=== PATIENT | female | born 2000 | race Caucasian/White ===

== ENCOUNTER 2020-05-11 12:48 | Emergency (ER) | payer OTHER, MEDICAID, SELFPAY ==
--- NOTE | ~2020-05-11 | XR_ITS ---
EXAMINATION: XR KNEE, LEFT CLINICAL INFORMATION: Pain and swelling COMPARISON: None TECHNIQUE: Four views of the left knee. FINDINGS: There is no evidence of acute fracture or dislocation of the left knee. Left knee joint spaces are maintained. No left knee effusion. Within the distal metaphysis of the left femur there is a rim calcified 1.8 x 1.4 cm lesion with what appears to be a mixed density matrix without periosteal reaction. The lesion is not expansile. This has a benign appearance. No central nidus is appreciated. At this age differential diagnostic would include fibrous dysplasia, is an umbilical granuloma, nonossifying fibroma, enchondroma, low-grade chondrosarcoma, giant cell tumor. XR/XR knee LT 4V IMPRESSION: Distal left femoral metaphyseal lesion as described. If clinically indicated MRI would be of help in further evaluation.
--- NOTE | ~2020-05-11 | US_ITS ---
EXAMINATION: US VENOUS ULTRASOUND WITH DOPPLER LOWER EXTREMITY, LEFT CLINICAL INFORMATION: Left lower extremity swelling. Assess for occult DVT COMPARISON: Radiographs left knee 05/11/2020 TECHNIQUE: Ultrasound of the deep veins is performed from the hip to the calf with compression sonography and color and pulse Doppler assessment. Spectral analysis with color-flow imaging is performed. FINDINGS: There is normal venous compression and respiratory variation and augmented flow. The visualized common femoral vein, superficial femoral vein, profunda femoral vein, popliteal vein, and the trifurcation region shows no evidence of deep venous thrombosis. No popliteal fossa cyst demonstrated. US/US venous duplex LE LT IMPRESSION: No DVT demonstrated in the left lower extremity.
[2020-05-11 12:51] VITALS: BP 110/66; PULSE 93; RESP 16; TEMP 36.9; O2SAT 98; BMI 21.2
[2020-05-11 15:59] VITALS: BP 118/67; PULSE 88; RESP 18; TEMP 36.8; O2SAT 98
--- NOTE | 2020-05-11 16:23 | ED.LOWEXIN ---
HPI - Extremity Injury (Lower) General Chief Complaint: Extremity Injury, Lower Stated Complaint: swollen leg Time Seen by Provider: 05/11/20 14:09 Source: patient Mode of arrival: ambulatory History of Present Illness HPI Narrative: 19-year-old female with a past medical history of scoliosis presenting to the ED complaining of left knee pain radiating down left leg x1 week with associated left leg swelling. Denies known injury/trauma or falls. Denies recent travel, history of blood clots, numbness, tingling, weakness, SOB/CP Related Data Allergies Allergy/AdvReac Type Severity Reaction Status Date / Time No Known Allergies Allergy Unverified 05/11/20 14:09 Review of Systems Review of Systems: Constitutional: No Fever, No Chills Musculoskeletal: + joint pain, No Myalgias, + Joint Swelling Skin: No Skin Lesions, No rash Neuro: No Weakness, No Numbness, No Paresthesias Yes all other systems are reviewed and are negative [facility] Past Medical History Attestation statement: The following information was validated with the patient. Medical History (Updated 05/11/20 @ 16:27 by ORESTES Smith) Scoliosis Social History Social History Advance Directives: No Advance Directives Information Provided: No Physical Exam Vital Signs: Vital Signs: Last Vital Signs Temp 98.3 F 05/11/20 15:59 Pulse 88 05/11/20 15:59 Resp 18 05/11/20 15:59 BP 118/67 05/11/20 15:59 Pulse Ox 98 05/11/20 15:59 Body Mass Index 21.2 Const: General: cooperative and healthy appearing Orientation/consciousness: patient oriented x3 Limitations: no limitations HENMT: Head: Yes normal to inspection Ears: hearing grossly normal bilaterally General nose exam: Normal external nose present Face and sinus: Yes normal facial exam Eyes: General: appearance normal, both eyes and all related structures EOM: EOMs intact bilaterally Neck: Neck: Yes normal visual inspection Resp: Effort & Inspection: normal respiratory effort Cardio: Peripheral pulses: dorsalis pedis present Skin: Rashes: no rashes Wounds: no wounds Neuro: General: patient oriented x3, tone normal and moves all extremities Extrem: Other: Left knee with mild tenderness to palpation. Slight swelling appreciated to left lower extremity, no cellulitis/streaking appreciable infection/deformity + left calf tenderness. Neurovascularly intact distally. FROM intact LLE Course Course Course Narrative: XR knee LT 4V IMPRESSION: Distal left femoral metaphyseal lesion as described. If clinically indicated MRI would be of help in further evaluation US venous duplex LE LT IMPRESSION: No DVT demonstrated in the left lower extremity. >> results discussed with patient and father. Worrisome signs and symptoms and strict return precautions discussed. Should follow up with PCP for further workup of metaphyseal lesion MDM - Extremity Injury (Lower) MDM Narrative Medical decision making narrative: 19-year-old female with a past medical history of scoliosis presenting to the ED complaining of left knee pain radiating down left leg x1 week with associated left leg swelling. On exam VSS, NAD/well-appearing, physical exam as above. Concern for sprain/strain vs MSK pain vs DVT Plan: X-ray, venous duplex ultrasound Discharge Plan Discharge Clinical Impression: Swelling of lower extremity, Bone lesion Patient Disposition: Home, Self-Care Instructions: Leg Edema (ED) Additional Instructions: Your x-ray showed a bony lesion at your distal femur, this appears benign, however should be further looked at outpatient with her primary care doctor or orthopedist within MRI The ultrasound was negative for any blood clot Ice, elevate your leg Take Tylenol /Motrin for pain Follow-up with the records officer If pain persists or worsens, becomes unbearable, he developed weakness, fever or chills return to the ED Referrals: Melita Bruce MD [Primary Care Provider] - 2 days
== END 2020-05-11 16:40 | disposition home or self-care (01) ==
PROVIDERS: Emergency Provider Emergency Medicine Emergency Medical Services; PCP Pediatrics
DX: R60.0 Localized edema (principal); M79.662 Pain in left lower leg; M89.9 Disorder of bone, unspecified
CPT/HCPCS: 73564; 93971; 99283

== ENCOUNTER 2020-09-17 09:00 | Outpatient (RCR) | payer OTHER, SELFPAY | END 2020-09-24 14:27 | disposition home or self-care (01) | LOC: HO.PT 09:00 | PROVIDERS: PCP Pediatrics; Visit Provider Pediatrics | DX: M25.562 Pain in left knee (principal) | CPT/HCPCS: 97110; 97162 ==

== ENCOUNTER 2021-10-09 08:11 | Outpatient (REF) | payer OTHER, SELFPAY ==
--- NOTE | ~2021-10-09 | XR_ITS ---
EXAMINATION: BILATERAL ANKLE X-RAY CLINICAL INFORMATION: Effusion COMPARISON: None TECHNIQUE: 3 views of each ankle FINDINGS: Bone alignment is normal. No fracture or dislocation is seen. The ankle mortise is normal. There is no ankle joint effusion. Soft tissues are normal. XR/XR ankle RT 2V IMPRESSION: Unremarkable exam.
--- NOTE | ~2021-10-09 | XR_ITS ---
EXAMINATION: XR KNEE, LEFT CLINICAL INFORMATION: Pain COMPARISON: Previous x-ray April 2020 TECHNIQUE: Three views of the left knee. FINDINGS: Bone alignment is normal. No fracture or dislocation is seen. There is a lucency with sclerotic margin in the distal medial metaphysis of the femur. This measures approximately 1 x 2 cm. This does not appear appreciably changed from 2020 exam. The joint spaces are normal. Lateral view not obtained and joint effusion cannot be assessed. XR/XR knee LT 3V IMPRESSION: Stable appearance to the lucency without sclerotic border in the distal medial metaphysis of the left femur from April 2020 exam.
--- NOTE | ~2021-10-09 | XR_ITS ---
EXAMINATION: BILATERAL ANKLE X-RAY CLINICAL INFORMATION: Effusion COMPARISON: None TECHNIQUE: 3 views of each ankle FINDINGS: Bone alignment is normal. No fracture or dislocation is seen. The ankle mortise is normal. There is no ankle joint effusion. Soft tissues are normal. XR/XR ankle LT 2V IMPRESSION: Unremarkable exam.
[2021-10-09 08:27] LABS: MANUAL DIFF FLAG NO
[2021-10-09 08:44] LABS: Basophils Percent Auto 0.5 % (0-2); Eosinophils Absolute Auto 0.1 X10*3/uL (0.0-0.4); Eosinophils Percent Auto 1.7 % (0-4); Hematocrit 41.1 % (37.0-47.0); Hemoglobin 13.3 g/dl (12.0-16.0); Imm Gran Abs Auto 0.05 X10*3/uL (0.00-0.03); Imm Gran Pct Auto 0.8 % (0.0-0.4); Lymphocytes Absolute Auto 1.4 X10*3/uL (1.2-4.9); Mean Corpuscular HGB Conc 32.4 g/dl (31.0-35.0); Mean Corpuscular Volume 92.8 fL (80.0-98.0); Mean Platelet Volume 11.6 fL (9.4-12.3); Monocytes Absolute Auto 0.5 X10*3/uL (0.1-1.2); Monocytes Percent Auto 7.3 % (2-11); Neutrophils Absolute Auto 4.4 x10*3/uL (2.0-8.3); Neutrophils Percent Auto 67.7 % (45-73); Platelet Count 163 X10*3/uL (160-400); Red Blood Count 4.43 X10*6/uL (4.20-5.50); Red Cell Distribution Width 11.9 % (11.0-16.0); White Blood Count 6.5 X10*3/uL (4.8-10.8)
[2021-10-09 09:13] LABS: Alanine Aminotransferase 14 U/L (0-31); Albumin Level 4.2 g/dL (3.5-5.0); Alkaline Phosphatase 55 U/L (39-117); Anion Gap 12 (12-20); Aspartate Amino Transferase 16 U/L (5-31); Bilirubin Total 0.4 mg/dL (0.0-1.0); Blood Urea Nitrogen 12 mg/dL (9-16); Calcium 9.4 mg/dL (8.4-10.2); Carbon Dioxide 27 mmol/L (22-29); Chloride 107 mmol/L (96-108); Estimated Glomerular Filt Rate > 60; Glucose Fasting 81 mg/dL (60-99); Potassium 4.1 mmol/L (3.3-5.1); Sodium 142 mmol/L (135-145); Total Protein 7.1 g/dL (6.5-8.0)
[2021-10-09 09:34] LABS: Thyroid Stimulating Hormone 1.56 uIU/mL (0.32-4.0)
== END 2021-10-09 08:12 | disposition home or self-care (01) ==
LOC: HO.LAB 08:11
PROVIDERS: PCP Internal Medicine; Visit Provider Internal Medicine
DX: R63.0 Anorexia (principal); D64.9 Anemia, unspecified; R23.3 Spontaneous ecchymoses; M25.562 Pain in left knee; M25.473 Effusion, unspecified ankle
CPT/HCPCS: 36415; 73562; 73600; 80053; 84443; 85025

== ENCOUNTER 2021-12-13 11:01 | Emergency (ER) | payer OTHER, SELFPAY ==
[2021-12-13 11:45] VITALS: BP 130/79; PULSE 68; RESP 14; TEMP 36.8; O2SAT 100; BMI 19.5
--- OUTSIDE RECORDS SUMMARY | 2021-12-13 11:53 | XMS_ITS | Continuity of Care Document ---
:2000 Author Organization [facility] Address [address] [place] [address]- Care Team Providers Name Role Phone Melita Bruce MD Primary Care Physician Encounter [facility] Date(s): 06/18/20 - 07/18/20 [facility] [address] [place] [address]- Attending Physician: [place] Admitting Physician: [place] Referring Physician: AdmtrAngeles Allergies, Adverse Reactions, Alerts Substance Reaction Severity Status NKA Active Medications Advil By Mouth, Every 6 hours, Refills 0, Maintenance, 06/18/20 14:59:00 EDT, Partial fill upon patient request if the prescription is for a schedule II opioid drug. Start Date: 06/18/20 Status: Ordered Social History Social History Type Response Smoking Status Never (less than 100 in life time) entered on: 06/18/20 Sex
--- OUTSIDE RECORDS SUMMARY | 2021-12-13 11:53 | XMS_ITS | Continuity of Care Document ---
:2000 Author Organization [facility] Address [address] [place] [id number]- Care Team Providers Name Role Phone Melita Bruce MD Primary Care Physician Encounter [facility] Date(s): 03/14/20 - 04/20/[address] [address] Attending Physician: Magdalena Krishnan MD Admitting Physician: Magdalena Krishnan MD Referring Physician: Magdalena Krishnan MD
--- OUTSIDE RECORDS SUMMARY | 2021-12-13 11:53 | XMS_ITS | Continuity of Care Document ---
:2000 Author Organization [facility] Address [address] [place] [id number]- Care Team Providers Name Role Phone Melita Bruce MD Primary Care Physician [place] [facility]): [place]/06/20 - 07/09/[address] [id number] Attending Physician: Melita Bruce MD Admitting Physician: Melita Bruce MD Referring Physician: Melita Bruce MD Allergies, Adverse Reactions, Alerts Substance Reaction Severity [...]
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
== END 2021-12-13 12:28 | disposition home or self-care (01) ==
PROVIDERS: Emergency Provider Emergency Medicine; PCP Internal Medicine
DX: M54.50 Low back pain, unspecified (principal); M54.2 Cervicalgia; R51.9 Headache, unspecified
CPT/HCPCS: 99283

== ENCOUNTER 2022-01-16 14:11 | Outpatient (REF) | payer OTHER, SELFPAY ==
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
== END 2022-01-16 14:12 | disposition home or self-care (01) ==
LOC: HO.XRAY 14:11
PROVIDERS: PCP Internal Medicine; Visit Provider Chiropractor
DX: M25.531 Pain in right wrist (principal)
CPT/HCPCS: 73110; 73130

== ENCOUNTER 2022-03-10 16:37 | Outpatient (REF) | payer OTHER, SELFPAY ==
[2022-03-10 17:22] LABS: Influenza A PCR NEGATIVE (Negative); Influenza B PCR NEGATIVE (Negative); Resp Syncy Virus RNA Qual PCR NEGATIVE (Negative); SARS COV2 PCR INHOUSE NEGATIVE (Negative)
== END 2022-03-10 16:38 | disposition home or self-care (01) ==
LOC: HO.LNP 16:37
PROVIDERS: Visit Provider Physician Assistant
DX: Z20.822 Contact with and (suspected) exposure to COVID-19 (principal); B34.9 Viral infection, unspecified
CPT/HCPCS: 0241U

== ENCOUNTER 2022-03-11 13:56 | Outpatient (REF) | payer OTHER, SELFPAY ==
[2022-03-11 16:27] LABS: MANUAL DIFF FLAG NO
[2022-03-11 16:31] LABS: Basophils Percent Auto 0.3 % (0-2); Eosinophils Absolute Auto 0.1 X10*3/uL (0.0-0.4); Eosinophils Percent Auto 1.3 % (0-4); Hematocrit 42.9 % (37.0-47.0); Hemoglobin 14.1 g/dl (12.0-16.0); Imm Gran Abs Auto 0.13 X10*3/uL (0.00-0.03); Imm Gran Pct Auto 1.4 % (0.0-0.4); Lymphocytes Absolute Auto 1.3 X10*3/uL (1.2-4.9); Lymphocytes Percent Auto 14.6 % (20-40); Mean Corpuscular HGB Conc 32.9 g/dl (31.0-35.0); Mean Corpuscular Hemoglobin 30.3 pg (27.0-33.0); Mean Corpuscular Volume 92.3 fL (80.0-98.0); Mean Platelet Volume 12.2 fL (9.4-12.3); Monocytes Absolute Auto 0.7 X10*3/uL (0.1-1.2); Monocytes Percent Auto 7.4 % (2-11); Neutrophils Absolute Auto 6.8 x10*3/uL (2.0-8.3); Platelet Count 214 X10*3/uL (160-400); Red Blood Count 4.65 X10*6/uL (4.20-5.50); White Blood Count 9.1 X10*3/uL (4.8-10.8)
[2022-03-11 16:55] LABS: Iron 97 mcg/dL (30-160); Percent Iron Saturation 28 % (15-50); Total Iron Binding Capacity 343 mcg/dL (228-428); Unsaturated Iron Binding 246 ug/dL
== END 2022-03-11 13:57 | disposition home or self-care (01) ==
LOC: HO.HMGCLDS 13:56
PROVIDERS: PCP Internal Medicine; Visit Provider Physician Assistant
DX: R23.3 Spontaneous ecchymoses (principal)
CPT/HCPCS: 36415; 83540; 85025

== ENCOUNTER 2022-03-21 07:27 | Emergency (ER) | payer OTHER, SELFPAY ==
[2022-03-21 07:31] VITALS: BP 123/73; PULSE 95; RESP 17; TEMP 36.6; O2SAT 98; BMI 21.2
--- NOTE | 2022-03-21 09:02 | ED.GENADULT ---
HPI - General Adult General Chief complaint: General Medical Stated complaint: Nose bleed/Vomiting Time Seen by Provider: 03/21/22 08:57 Source: patient Limitations: no limitations History of Present Illness HPI narrative: 21-year-old female with longstanding history recurrent nose bleeds. Patient has been followed by ENT in the past. Patient had atraumatic nosebleed this morning. Out of the right knee a. Patient has planned follow-up with ENT. Patient states she did swell some blood in no has an upset stomach. Patient denies taking any prescribed medications at this time. No known fever chills shortness of breath. No other complaints at this time Related Data Previous Rx's Medication Instructions Recorded cyclobenzaprine 10 mg tablet 10 mg PO Q8H PRN muscle spasm #10 12/13/21 tabs ibuprofen 600 mg tablet 600 mg PO Q8H PRN pain #20 tabs 12/13/21 oxymetazoline 0.05 % nasal spray 2 spray intranasal Q12H PRN nasal 03/21/22 (Afrin Sinus (oxymetazoline)) congestion 3 days #15 mL sodium chloride 0.65 % nasal spray 2 spray intranasal QID #50 mL 03/21/22 aerosol ([place] Saline) Allergies Allergy/AdvReac Type Severity Reaction Status Date / Time No Known Allergies Allergy Verified 03/10/22 14:06 Review of Systems Review of Systems: Constitutional : no fever chills ENT/Mouth : positive bloody nose right near Cardiovascular : No Chest Pain, No SOB Respiratory : No Cough, No Sputum Gastrointestinal : No Nausea, No Vomiting, No Diarrhea Musculoskeletal : No joint pain, No Myalgias, No Joint SwellingSkin : No Skin Lesions, No rash Neuro : no headache PMFSH Past Medical History Medical History Scoliosis Surgical History History of back surgery Family History Family History Mother No problems noted. Father Diabetes Social History Social History Housing: House Alcohol intake: current Alcohol intake frequency: does not drink Alcohol type: hard liquor Patient Tobacco Use Status: Never used Tobacco Smoked in Last 30 Days: No e-Cigarette/Vaping Use: Never Used Second Hand Smoke Exposure: No Use of substances other than those prescribed or required for medical reasons: No Advance Directives: No Advance Directives Information Provided: Yes service: No Current occupational status: employed Current occupational exposures/hazards: No Cognitive needs: No Hearing needs: No Vision needs: Yes Physical Exam ED Vital Signs: Vital Signs - 24 hr 03/21/22 07:31 03/21/22 10:53 03/21/22 11:09 Temperature 98 F 97.9 F Pulse Rate 95 98 80 Respiratory Rate 17 16 Blood Pressure 123/73 94/66 109/64 Pulse Oximetry 98 98 Oxygen Delivery Method Room Air Room Air 03/21/22 11:38 03/21/22 11:39 Temperature Pulse Rate 77 96 Respiratory Rate Blood Pressure 114/71 120/79 Pulse Oximetry Oxygen Delivery Method BMI result Body Mass Index 21.2 vital signs have been reviewed as normal and appeared to be correct. Blood pressure normal. Heart rate normal. Respiration rate normal. Temperature normal. Oxygen saturation normal. Appearance: Alert. Oriented X3. No acute distress. Head: Normal external exam. Normocephalic. Atraumatic. Eyes: PERRLA. EOMI. ENT: oropharynx is clear. Dry blood noted in the right near. Neck: Soft full range of motion, no JVD CVS: Heart regular rate and rhythm no murmurs and rubs Abdomen: Soft nontender no rebound or guarding positive bowel sounds Back: Full range of motion noted. Skin: Skin warm and dry. Normal skin color. Extremities: No lower extremity edema. Extremities exhibit normal range of motion. Extremities nontender. Neuro: Oriented X 3. No motor deficit. No sensory deficit. Reflexes normal. Course Course Course Narrative: Epistaxis Epistaxis resolved Nausea Anemia Medications Administered Discontinued Medications Generic Name Dose Route Start Last Admin Trade Name Freq PRN Reason Stop Dose Admin Cocaine HCl 2 ml 03/21/22 09:00 03/21/22 09:07 Cocaine Hcl 4 % 4 Ml Solution TOPICAL 03/21/22 09:01 2 ml ONCE ONE Administration Protocol Ondansetron HCl 4 mg 03/21/22 09:00 03/21/22 09:06 Ondansetron Odt 4 Mg Tab.Rapdis TRANSLINGU 03/21/22 09:01 4 mg ONCE ONE Administration Tranexamic Acid 500 mg 03/21/22 10:33 03/21/22 10:38 Tranexamic Acid 1,000 Mg/10 Ml Vial INTRANASAL 03/21/22 10:34 500 mg ONCE ONE Administration Medical Decision Making Medical Decision Making [facility] Narrative: 21-year-old female with recurrent nosebleeds in the past. Most likely secondary to the dry air at this time. Patient has follow-up planned with ENT. Will place cocaine nasal packing at this time and observe patient patient was also given 4 mg Zofran ODT to help with nausea. Patient's vital signs are otherwise stable likely plan discharge home 10:34 patient continues to have some slow bleeding will attempt a TXA packing at this time. Patient would not like a full rhino rocket if she can avoid it at this time. Patient is tearful and states her grandmother of esophageal clot and is concerned that is an issue for her at this time patient was reassured that this is a superficial bleeding her nose. 11:10am case discussed at length with father was very concerned that she has he has continues nosebleeds multiple times a week. Will check CBC BMP and orthostatic vital signs at this time. will also refer patient to ENT follow-up 11:51 patient is nonorthostatic hemoglobin and hematocrit are stable 14.5/44.8 labs reviewed with patient at length patient has no active bleeding in the nasal passageway. Patient encouraged not to blow her nose and at humidity to the air at home. Patient will be given follow-up with ENT and to return if symptoms worsen. At this time we were able to avoid a rhino rocket which was at patient's request. Lab Data 03/21/22 11:33 03/21/22 11:33 Labs: Lab Results 03/21/22 03/21/22 Range/Units 11:33 11:33 WBC 11.6 H (4.8-10.8) X10*3/uL RBC 4.90 (4.20-5.50) X10*6/uL Hgb 14.5 (12.0-16.0) g/dl Hct 44.8 (37.0-47.0) % MCV 91.4 (80.0-98.0) fL MCH 29.6 (27.0-33.0) pg MCHC 32.4 (31.0-35.0) g/dl RDW 12.0 (11.0-16.0) % Plt Count 254 (160-400) X10*3/uL MPV 10.3 (9.4-12.3) fL Immature Gran % (Auto) 0.4 (0.0-0.4) % Neut % (Auto) 87.5 H (45-73) % Lymph % (Auto) 6.6 L (20-40) % [place]aston % (Auto) 4.5 (2-11) % Eos % (Auto) 0.8 (0-4) % Baso % (Auto) 0.2 (0-2) % Lymph # (Auto) 0.8 L (1.2-4.9) X10*3/uL [place]aston # (Auto) 0.5 (0.1-1.2) X10*3/uL Eos # (Auto) 0.1 (0.0-0.4) X10*3/uL Baso # (Auto) 0.0 (0.0-0.2) X10*3/uL Abs Immat Gran (auto) 0.05 H (0.00-0.03) X10*3/uL Absolute Neuts (auto) 10.1 H (2.0-8.3) x10*3/uL Absolute Nucleated RBC 0.000 (0.0-0.012) X10*3/uL Nucleated RBC % (auto) 0.0 (0.0-0.2) /100WBC Sodium 141 (135-145) mmol/L Potassium 4.5 (3.3-5.1) mmol/L Chloride 108 (96-108) mmol/L Carbon Dioxide 23 (22-29) mmol/L Anion Gap 15 (12-20) BUN 16 (9-16) mg/dL Creatinine 0.65 (0.5-1.4) mg/dL Estim Creat Clear Calc 111.4 Estimated GFR > 60 Random Glucose 87 (60-115) mg/dL Calcium 9.3 (8.4-10.2) mg/dL Discharge Plan Discharge Clinical Impression: Epistaxis Patient Disposition: Home, Self-Care Instructions: Nosebleed (ED) Additional Instructions: Your blood work is within normal limits your hemoglobin and hematocrit is stable (14.5/44.8) Vital signs are stable Humidify the air in your room will help decrease chances for recurrent nose bleeds. For for further evaluation close follow-up with ENT as needed referral has been placed in your chart. You will need to reach out to them Prescriptions: [place] Saline 0.65 % aerosol,spray 2 spray intranasal QID Qty: 50 0RF oxymetazoline [Afrin Sinus (oxymetazoline)] 0.05 % spray,non-aerosol 2 spray intranasal Q12H PRN (Reason: nasal congestion) 3 Days Qty: 15 0RF No Action ibuprofen 600 mg tablet 600 mg PO Q8H PRN (Reason: pain) Qty: 20 0RF cyclobenzaprine 10 mg tablet 10 mg PO Q8H PRN (Reason: muscle spasm) Qty: 10 0RF Referrals: Mateo Akbar [Physician] - ( Recurrent nose bleeds multiple times a month) Stand Alone Forms: Work/School Release
[2022-03-21] MEDS: Ondansetron ODT 4 MG TAB.RAPDIS TRANSLINGU (09:06)
[2022-03-21] MEDS: Cocaine HCl 4 % 4 ML SOLUTION 2 ML TOPICAL (09:07)
[2022-03-21] MEDS: Tranexamic Acid 1,000 MG/10 ML VIAL 500 MG INTRANASAL (10:38)
[2022-03-21 10:53] VITALS: BP 94/66; PULSE 98; RESP 16; TEMP 36.6; O2SAT 98
[2022-03-21 11:09] VITALS: BP 109/64; PULSE 80
[2022-03-21 11:37] LABS: MANUAL DIFF FLAG NO
[2022-03-21 11:38] VITALS: BP 114/71; PULSE 77
[2022-03-21 11:39] VITALS: BP 120/79; PULSE 96
[2022-03-21 11:39] LABS: Basophils Percent Auto 0.2 % (0-2); Eosinophils Absolute Auto 0.1 X10*3/uL (0.0-0.4); Eosinophils Percent Auto 0.8 % (0-4); Hematocrit 44.8 % (37.0-47.0); Hemoglobin 14.5 g/dl (12.0-16.0); Imm Gran Abs Auto 0.05 X10*3/uL (0.00-0.03); Imm Gran Pct Auto 0.4 % (0.0-0.4); Lymphocytes Absolute Auto 0.8 X10*3/uL (1.2-4.9); Lymphocytes Percent Auto 6.6 % (20-40); Mean Corpuscular HGB Conc 32.4 g/dl (31.0-35.0); Mean Corpuscular Hemoglobin 29.6 pg (27.0-33.0); Mean Corpuscular Volume 91.4 fL (80.0-98.0); Mean Platelet Volume 10.3 fL (9.4-12.3); Monocytes Absolute Auto 0.5 X10*3/uL (0.1-1.2); Monocytes Percent Auto 4.5 % (2-11); Neutrophils Absolute Auto 10.1 x10*3/uL (2.0-8.3); Neutrophils Percent Auto 87.5 % (45-73); Platelet Count 254 X10*3/uL (160-400); White Blood Count 11.6 X10*3/uL (4.8-10.8)
--- NOTE | 2022-03-21 11:42 | PC.NURSE ---
pt a&ox3, vss, labs drawn, orthostatic vitals complete - pt tolerated well, denies any dizziness at this time.
[2022-03-21 11:55] LABS: Anion Gap 15 (12-20); Blood Urea Nitrogen 16 mg/dL (9-16); Calcium 9.3 mg/dL (8.4-10.2); Carbon Dioxide 23 mmol/L (22-29); Chloride 108 mmol/L (96-108); Creatinine Clr Calc Pharmacy 111.4; Estimated Glomerular Filt Rate > 60; Glucose Random 87 mg/dL (60-115); Potassium 4.5 mmol/L (3.3-5.1); Sodium 141 mmol/L (135-145)
--- NOTE | 2022-03-21 12:23 | PC.NURSE ---
pt a&ox3, bleeding resolved at this time, advised to follow up w ENT per d/c instructions.
== END 2022-03-21 12:27 | disposition home or self-care (01) ==
PROVIDERS: Physician Assistant; Emergency Provider Emergency Medicine; PCP Internal Medicine
DX: R04.0 Epistaxis (principal); Z79.899 Other long term (current) drug therapy
CPT/HCPCS: 36415; 80048; 85025; 99283; C9143

== ENCOUNTER 2022-04-18 09:01 | Outpatient (REF) | payer OTHER, SELFPAY ==
[2022-04-21 16:29] LABS: TS Negative Control Passed; TS Panel A 0; TS Panel B 0; TS Positive Control Passed; TSpotTB Negative (Negative)
[2022-04-21 17:28] LABS: Rubella IgG Antibody 6.61 Index
== END 2022-04-18 09:02 | disposition home or self-care (01) ==
LOC: HO.LAB 09:01
PROVIDERS: PCP Internal Medicine; Visit Provider Internal Medicine
DX: Z01.84 Encounter for antibody response examination (principal); Z11.1 Encounter for screening for respiratory tuberculosis
CPT/HCPCS: 36415; 86481; 86735; 86762; 86765

== ENCOUNTER 2022-08-14 21:47 | Emergency (ER) | payer OTHER, SELFPAY ==
--- NOTE | ~2022-08-14 | XR_ITS ---
EXAMINATION: XR ANKLE, LEFT XR FOOT, LEFT CLINICAL INDICATION: Pain COMPARISON: 10/09/2021 TECHNIQUE: 3 views of the left ankle. 3 views of the left foot. FINDINGS: Articular alignment throughout the ankle and foot appears anatomic. No acute fracture is seen. No significant focal soft tissue abnormality identified. XR/XR ankle LT min 3V IMPRESSION: No acute findings identified in the left ankle or foot.
--- NOTE | ~2022-08-14 | XR_ITS ---
EXAMINATION: XR ANKLE, LEFT XR FOOT, LEFT CLINICAL INDICATION: Pain COMPARISON: 10/09/2021 TECHNIQUE: 3 views of the left ankle. 3 views of the left foot. FINDINGS: Articular alignment throughout the ankle and foot appears anatomic. No acute fracture is seen. No significant focal soft tissue abnormality identified. XR/XR foot LT min 3V IMPRESSION: No acute findings identified in the left ankle or foot.
[2022-08-14 22:21] VITALS: BP 116/63; PULSE 84; RESP 16; TEMP 36; O2SAT 100; BMI 23.0
[2022-08-14 23:25] VITALS: BP 111/64; PULSE 88; RESP 12; TEMP 36.9; O2SAT 97
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
--- NOTE | 2022-08-15 01:08 | PC.NURSE ---
Crutch education provided. Return demonstration performed by pt. Discharge instructions reviewed with pt. Pt verbalizes understanding.
== END 2022-08-15 01:10 | disposition home or self-care (01) ==
PROVIDERS: Emergency Provider Student in an Organized Health Care Education/Training Program; PCP Internal Medicine
DX: S93.602A Unspecified sprain of left foot, initial encounter (principal); M25.572 Pain in left ankle and joints of left foot; Y29.XXXA Contact with blunt object, undetermined intent, initial encounter; Y93.9 Activity, unspecified; Y92.239 Unspecified place in hospital as the place of occurrence of the external cause; Y99.9 Unspecified external cause status
CPT/HCPCS: 73610; 73630; 99283; 99284

== ENCOUNTER 2022-10-06 17:26 | Outpatient (AMB) | payer OTHER, SELFPAY ==
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
[2022-10-06 17:32] VITALS: BP 110/62; BMI 23.0
== END 2022-10-06 17:48 | disposition home or self-care (01) ==
PROVIDERS: PCP Internal Medicine; Visit Provider Internal Medicine
DX: S90.32XA Contusion of left foot, initial encounter (principal)
CPT/HCPCS: 99213

== ENCOUNTER 2022-11-04 18:53 | Outpatient (REF) | payer OTHER, SELFPAY ==
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
== END 2022-11-04 18:54 | disposition home or self-care (01) ==
LOC: HO.MRI 18:53
PROVIDERS: PCP Internal Medicine; Visit Provider Internal Medicine
DX: S90.32XA Contusion of left foot, initial encounter (principal)
CPT/HCPCS: 73718

== ENCOUNTER 2022-12-29 05:04 | Emergency (ER) | payer OTHER, SELFPAY ==
--- NOTE | ~2022-12-29 | CT_ITS ---
EXAMINATION: CT ABDOMEN AND PELVIS WITHOUT CONTRAST CLINICAL INFORMATION: Right lower quadrant pain. COMPARISON: None available. TECHNIQUE: Multidetector volumetric imaging was performed from the superior aspect of the liver through the pubic symphysis. Sagittal and coronal reformatted images were obtained on the technologist's workstation. This CT examination was performed using dose optimization techniques as appropriate, variously including the following: *Automated exposure control *Adjustment of mA and/or kV according to patient size (this includes techniques or standardized protocols for targeted exams where dose is matched to indication/reason for exam; i.e. extremities or head) *Use of iterative reconstruction technique DLP: 417 mGy-cm FINDINGS: LUNG BASES: The visualized lung bases are unremarkable. LIVER, GALLBLADDER, AND BILIARY TREE: The noncontrast liver is normal in size and contour. No biliary ductal dilatation is present. The gallbladder is unremarkable with no evidence of radiopaque gallstones, gallbladder wall thickening, or obvious pericholecystic inflammatory changes. PANCREAS: Unremarkable. SPLEEN: Unremarkable. ADRENAL GLANDS: Unremarkable. KIDNEYS AND URETERS: No renal or ureteral calculus. Moderate right hydroureteronephrosis. Mild right perinephric stranding. BLADDER: Decompressed. No bladder calculus visualized. GASTROINTESTINAL TRACT: The small and large bowel are unremarkable. The appendix is unremarkable. ABDOMINAL WALL: No significant hernia is appreciated. LYMPH NODES: No bulky lymphadenopathy. VASCULAR: Normal caliber abdominal aorta PELVIC VISCERA: Unremarkable. OSSEOUS STRUCTURES: Periprosthetic lucency surrounding the left L3 screw. CT/CT abdomen pelvis wo IV con IMPRESSION: Moderate right hydroureteronephrosis with mild right perinephric stranding. A recently passed calculus cannot be excluded. Periprosthetic lucency surrounding the left L3 screw. This could hardware represent loosening.
[2022-12-29 05:14] VITALS: BP 130/79; PULSE 74; RESP 16; TEMP 36.8; O2SAT 98; BMI 22.7
--- NOTE | 2022-12-29 05:22 | ED.ABDPAIN ---
HPI - Abdominal Pain General Chief Complaint: Abdominal Pain Stated Complaint: Flank pain Time Seen by Provider: 12/29/22 05:20 Source: patient and family Mode of arrival: ambulatory Limitations: no limitations History of Present Illness HPI narrative: 22-year-old female came in for evaluation of right lower quadrant abdominal pain for 3 days, pain has been constant localized to the right lower quadrant area radiates to word the right flank, started her menstruation yesterday cannot tell if urine has blood or not, never had this symptoms in the past. Pain is associated with nausea and vomiting and decreased appetite. Patient was seen by her OBGYN preformed pelvic ultrasound on the patient was told that everything is okay. No dysuria, frequency urination, normal bowel movement last was yesterday, no vaginal discharge or bleed patient declined chance of today. New line never had history of intra-abdominal surgery. Related Data Previous Rx's Medication Instructions Recorded ibuprofen 600 mg tablet 600 mg PO Q8H PRN pain #20 tabs 12/13/21 ibuprofen 600 mg tablet 600 mg PO Q6H PRN pain #30 tabs 12/29/22 ondansetron 4 mg disintegrating 4 mg PO Q8H PRN nausea and 12/29/22 tablet vomiting #20 tabs Allergies Allergy/AdvReac Type Severity Reaction Status Date / Time No Known Allergies Allergy Verified 10/06/22 17:40 Review of Systems Review of Systems All other systems are reviewed and are negative Constitutional: Reports as per HPI and Reports no additional constitutional complaints Eyes: Reports as per HPI and Reports no additional eye complaints Reports system reviewed and no additional complaints, except as documented Cardiovascular: Reports as per HPI and Reports no additional cardiovascular complaints Respiratory: Reports as per HPI and Reports no additional respiratory complaints Gastrointestinal: Reports as per HPI and Reports no additional gastrointestinal complaints Genitourinary: Reports no additional female genitourinary complaints Musculoskeletal: Reports no additional musculoskeletal complaints Skin/Breast: Reports system reviewed and no additional complaints, except as docu Psychiatric: Reports no additional psychiatric complaints Endocrine: Reports no additional endocrine complaints Hematologic/Lymphatic: Reports no additional hematologic/lymphatic complaints Allergic/Immunologic: Reports no additional allergic/immunologic complaints Reports system reviewed and no additional complaints, except as documented and Reports Abnormal speech present [facility] Past Medical History Medical History Left breast lump Scoliosis Surgical History History of back surgery Family History Family History Mother No problems noted. Father Diabetes Social History Social History Housing: House Alcohol intake: current Alcohol intake frequency: holidays/special occasions only Alcohol type: hard liquor Patient Tobacco Use Status: Never used Tobacco Smoked in Last 30 Days: No e-Cigarette/Vaping Use: Never Used Second Hand Smoke Exposure: No Use of substances other than those prescribed or required for medical reasons: No Advance Directives: No Advance Directives Information Provided: No Patient : No service: No Current occupational status: employed Current occupational exposures/hazards: No Cognitive needs: No Hearing needs: No Vision needs: Yes Physical Exam ED Vital Signs: Vital Signs - 24 hr 12/29/22 05:14 12/29/22 07:16 Temperature 98.2 F 98.3 F Pulse Rate 74 72 Respiratory Rate 16 71 H Blood Pressure 130/79 122/71 Pulse Oximetry 98 97 Oxygen Delivery Method Room Air Room Air BMI result Body Mass Index 22.7 Vital signs have been reviewed and appear to be correct. Blood pressure elevated. Heart rate normal. Respiratory rate normal. Temperature normal. Oxygen saturation normal. Appearance: Alert. Oriented X3. No acute distress. Head: Normal external exam. Normocephalic. Atraumatic. No Schroeder signs noted. No raccoon eyes noted Eyes: PERRLA. EOMI. Conjunctiva and sclera normal. Eyelids normal. ENT: TM's Normal. Pharynx normal. Uvula midline. Moist mucous membranes. No trismus noted. No drooling noted. No muffled voice noted. Neck: Normal inspection. Neck supple. FROM. No adenopathy. Thyroid Normal. No meningeal signs. No neck mass noted. CVS: Normal heart rate and rhythm. Heart sound normal. No murmurs noted. Pulses normal throughout. Respiratory: No respiratory distress. Painless inspiration. Breath sounds normal. No wheezes/rales/rhonchi noted. Chest nontender. No accessory muscle usage noted or decreased air movement noted. Abdomen: Soft , right lower quadrant tenderness, no guarding, no rebound tenderness Bowel sounds normal in all 4 quadrants. No distention noted. No organomegaly noted. No visible injury noted. Back: R CVA tenderness. Full range of motion noted. Skin: Skin warm and dry. Normal skin color. Normal skin turgor. No rashes/lesions/lacerations noted. Extremities: No lower extremity edema. Extremities exhibit normal range of motion. Extremities nontender. Neuro: Oriented X 3. Cranial nerve exam: II-XII are grossly intact No motor deficit. No sensory deficit. Reflexes normal. Course Course Course Narrative: pain resolved suspect passed stone, discussed hardward, at this time stable for DC Medical Decision Making Differential Diagnosis Differential Diagnoses: The differential diagnosis associated with the presentation includes (Renal colic, acute appendicitis, colitis, diverticulitis, , UTI, pyelonephritis, pancreatitis, severe anemia, electrolyte abnormality.) Admission/Observation Consideration of admission/observation: Escalation of care including admission/observation considered Lab Data 12/29/22 05:26 12/29/22 05:26 Labs: Lab Results 12/29/22 12/29/22 Range/Units 05:26 07:13 WBC 12.7 H (4.8-10.8) X10*3/uL RBC 4.49 (4.20-5.50) X10*6/uL Hgb 13.9 (12.0-16.0) g/dl Hct 42.1 (37.0-47.0) % MCV 93.8 (80.0-98.0) fL MCH 31.0 (27.0-33.0) pg MCHC 33.0 (31.0-35.0) g/dl RDW 12.1 (11.0-16.0) % Plt Count 190 D (160-400) X10*3/uL MPV 11.8 (9.4-12.3) fL Immature Gran % (Auto) 0.5 H (0.0-0.4) % Neut % (Auto) 83.1 H (45-73) % Lymph % (Auto) 7.5 L (20-40) % [place] % (Auto) 8.2 (2-11) % Eos % (Auto) 0.5 (0-4) % Baso % (Auto) 0.2 (0-2) % Lymph # (Auto) 1.0 L (1.2-4.9) X10*3/uL [place] # (Auto) 1.0 (0.1-1.2) X10*3/uL Eos # (Auto) 0.1 (0.0-0.4) X10*3/uL Baso # (Auto) 0.0 (0.0-0.2) X10*3/uL Abs Immat Gran (auto) 0.06 H (0.00-0.03) X10*3/uL Absolute Neuts (auto) 10.6 H (2.0-8.3) x10*3/uL Absolute Nucleated RBC 0.000 (0.0-0.012) X10*3/uL Nucleated RBC % (auto) 0.0 (0.0-0.2) /100WBC Sodium 139 (135-145) mmol/L Potassium 4.0 (3.3-5.1) mmol/L Chloride 106 (96-108) mmol/L Carbon Dioxide 25 (22-29) mmol/L Anion Gap 12 (12-20) BUN 12 (9-16) mg/dL Creatinine 1.19 (0.5-1.4) mg/dL Estim Creat Clear Calc 60.3 Estimated GFR 56 Random Glucose 110 (60-115) mg/dL Calcium 9.5 (8.4-10.2) mg/dL Total Bilirubin 0.9 (0.0-1.0) mg/dL Direct Bilirubin 0.3 (0.0-0.5) mg/dL AST 21 (5-31) U/L ALT 14 (0-31) U/L Alkaline Phosphatase 69 (39-117) U/L Total Protein 7.6 (6.5-8.0) g/dL Albumin 4.4 (3.5-5.0) g/dL Lipase 19 (8-78) U/L Beta HCG, Quant < 2 mIU/mL Urine Color Yellow Urine Appearance Clear Urine pH 6.0 (5.0-9.0) Ur Specific [place] >= 1.030 H (1.005-1.025) Urine Protein 30 (1+) H (Neg-Trace) mg/dL Urine Glucose (UA) Negative (Negative) mg/dL Urine Ketones 40 (Negative) mg/dL Urine Blood Large (3+) H (Negative) Urine Nitrite Negative (Negative) Ur Leukocyte Esterase Trace H (Negative) Urine RBC >20 H (0-2) /HPF Urine WBC 0-5 (0-5) /HPF Ur Squamous Epith Cells 6-10 (0-2) /HPF Urine Bacteria None Seen (None Seen) Hyaline Casts 0-2 (0-2) /LPF Urine Test NEGATIVE (NEGATIVE) Medications Administered Discontinued Medications Generic Name Dose Route Start Last Admin Trade Name Freq PRN Reason Stop Dose Admin Sodium Chloride 1,000 mls @ 999 mls/hr 12/29/22 05:20 12/29/22 05:41 Ns IV 12/29/22 06:20 999 mls/hr .Q1H1M ONE Administration Ketorolac Tromethamine 15 mg 12/29/22 07:00 12/29/22 07:07 Ketorolac Tromethamine 15 Mg/Ml Vial IVPUSH 12/29/22 07:01 15 mg ONCE ONE Administration Morphine Sulfate 1 mg 12/29/22 05:20 12/29/22 05:40 Morphine Sulfate 2 Mg/Ml Cartridge IVPUSH 12/29/22 05:21 1 mg ONCE ONE Administration Protocol Morphine Sulfate 1 mg 12/29/22 06:28 12/29/22 06:32 Morphine Sulfate 2 Mg/Ml Cartridge IVPUSH 12/29/22 06:29 1 mg ONCE ONE Administration Protocol Ondansetron HCl 4 mg 12/29/22 05:20 12/29/22 05:41 Ondansetron Hcl 4 Mg/2 Ml Vial IVPUSH 12/29/22 05:21 4 mg ONCE ONE Administration Discharge Plan Discharge Clinical Impression: Right ureteral stone Abdominal pain Qualifiers: Abdominal location: right lower quadrant Qualified Code(s): R10.31 - Right lower quadrant pain Patient Disposition: Home, Self-Care Instructions: Abdominal Pain (ED), Ureteral Stones (ED) Additional Instructions: return for fevers, vomiting, worsening pain, inability to eat or drink or any other concerns. stay hydrated and rest. follow up with lj regarding incidental hardware finding. CT/CT abdomen pelvis wo IV con IMPRESSION: Moderate right hydroureteronephrosis with mild right perinephric stranding. A recently passed calculus cannot be excluded. Periprosthetic lucency surrounding the left L3 screw. This could hardware represent loosening. Prescriptions: New ibuprofen 600 mg tablet 600 mg PO Q6H PRN (Reason: pain) Qty: 30 0RF ondansetron 4 mg tablet,disintegrating 4 mg PO Q8H PRN (Reason: nausea and vomiting) Qty: 20 0RF No Action ibuprofen 600 mg tablet 600 mg PO Q8H PRN (Reason: pain) Qty: 20 0RF Stand Alone Forms: Work/School Release
[2022-12-29] MEDS: Morphine Sulfate 2 MG/ML CARTRIDGE 1 MG IVPUSH ×2 (05:40→06:32)
[2022-12-29] MEDS: ondansetron HCL 4 MG/2 ML VIAL IVPUSH (05:41)
[2022-12-29] MEDS: 0.9 % Sodium Chloride 1,000 ML 999 ML IV (05:41)
--- NOTE | 2022-12-29 05:54 | PC.NURSE ---
pt medicated per MAR
[2022-12-29 06:19] LABS: Basophils Percent Auto 0.2 % (0-2); Eosinophils Absolute Auto 0.1 X10*3/uL (0.0-0.4); Eosinophils Percent Auto 0.5 % (0-4); Hematocrit 42.1 % (37.0-47.0); Hemoglobin 13.9 g/dl (12.0-16.0); Imm Gran Abs Auto 0.06 X10*3/uL (0.00-0.03); Imm Gran Pct Auto 0.5 % (0.0-0.4); Lymphocytes Percent Auto 7.5 % (20-40); Mean Corpuscular Volume 93.8 fL (80.0-98.0); Mean Platelet Volume 11.8 fL (9.4-12.3); Monocytes Percent Auto 8.2 % (2-11); Neutrophils Absolute Auto 10.6 x10*3/uL (2.0-8.3); Neutrophils Percent Auto 83.1 % (45-73); Platelet Count 190 X10*3/uL (160-400); Red Blood Count 4.49 X10*6/uL (4.20-5.50); Red Cell Distribution Width 12.1 % (11.0-16.0); White Blood Count 12.7 X10*3/uL (4.8-10.8)
[2022-12-29 06:20] LABS: MANUAL DIFF FLAG NO
[2022-12-29 06:33] LABS: Alanine Aminotransferase 14 U/L (0-31); Albumin Level 4.4 g/dL (3.5-5.0); Alkaline Phosphatase 69 U/L (39-117); Anion Gap 12 (12-20); Aspartate Amino Transferase 21 U/L (5-31); Bilirubin Direct 0.3 mg/dL (0.0-0.5); Bilirubin Total 0.9 mg/dL (0.0-1.0); Blood Urea Nitrogen 12 mg/dL (9-16); Calcium 9.5 mg/dL (8.4-10.2); Carbon Dioxide 25 mmol/L (22-29); Chloride 106 mmol/L (96-108); Creatinine Clr Calc Pharmacy 60.3; Estimated Glomerular Filt Rate 56; Glucose Random 110 mg/dL (60-115); Lipase 19 U/L (8-78); Sodium 139 mmol/L (135-145); Total Protein 7.6 g/dL (6.5-8.0)
--- NOTE | 2022-12-29 06:35 | PC.NURSE ---
pt reassessed for pain, reported no pain relief after pain medication, pt rate her pain 10/10. Dr. bustos, pt medicated per MAR
[2022-12-29] MEDS: Ketorolac Tromethamine 15 MG/ML VIAL IVPUSH (07:07)
[2022-12-29 07:16] VITALS: BP 122/71; PULSE 72; RESP 71; TEMP 36.8; O2SAT 97
[2022-12-29 07:23] LABS: Appearance Urine Clear; Color Urine Yellow; Glucose Urine UA Negative (Negative); Leukocyte Esterase Urine Trace (Negative); Nitrite Urine Negative (Negative); Specific Gravity - Urine >= 1.030 (1.005-1.025); UMIC TRIGGER UACC YES; Urine Blood Large (3+) (Negative); Urine Ketones 40 mg/dL (Negative); Urine Protein 30 (1+) mg/dL (Neg-Trace)
[2022-12-29 07:25] LABS: UPreg QC Valid YES; Urine Pregnancy NEGATIVE (NEGATIVE)
[2022-12-29 07:28] LABS: Bacteria Urine None Seen (None Seen); Hyaline Casts Urine 0-2 /LPF (0-2); RBC Urine >20 /HPF (0-2); WBC Urine 0-5 /HPF (0-5)
[2022-12-29 07:41] LABS: HCG Quantitative < 2 mIU/mL
[2022-12-29 09:22] VITALS: BP 125/66; PULSE 77; RESP 17; O2SAT 98
== END 2022-12-29 09:23 | disposition home or self-care (01) ==
PROVIDERS: Emergency Medicine; Emergency Provider Emergency Medicine; PCP Internal Medicine
DX: R10.31 Right lower quadrant pain (principal); N20.1 Calculus of ureter
CPT/HCPCS: 36415; 74176; 80048; 80076; 81001; 81025; 83690; 84702; 85025; 96374; 96375; 96376; 99284; 99285; J1885; J2270; J2405

== ENCOUNTER 2023-05-25 10:25 | Outpatient (AMB) | payer OTHER, SELFPAY ==
[2023-05-25 10:32] VITALS: BP 120/62; PULSE 100; TEMP 37.6; O2SAT 98; BMI 22.2
--- NOTE | 2023-05-25 10:32 | MHC.OFFWIV ---
Intake Vital Signs 05/25/23 10:32 Height 5 ft 3 in Weight 125 lb 6 oz BMI 22.2 BP 120/62 Blood Pressure Location Rt brachial Position Sitting Pulse 100 Pulse Source Pulse Oximeter Temp 99.6 F Temp Source Oral Pulse Oximetry (%) 98 Oxygen Delivery Method Room Air Intake Visit Reasons: EP 2wks chest congestion body aches (lobby) Intake Note: pt is here today for chest congestion body aches started 2 weeks ago. Pt states she has a cough as well. Patient Tobacco Use Status: Never used Tobacco Allergies No Known Allergies Allergy (Verified 05/25/23 11:17) Medication List - Last Reconciled 05/25/23 by Nash Ayala MD ibuprofen 600 mg PO Q8H PRN ibuprofen 600 mg PO Q6H PRN ondansetron 4 mg PO Q8H PRN HPI EP 2wks chest congestion body aches (lobby) HPI Details Patient presents for a sick visit. Reporting symptoms of sinus congestion, sore throat and difficulty swallowing. Low-grade fever. No family member is sick. No recent travel. Patient reports symptoms of malaise and fatigue. [facility] Medical History Left breast lump Scoliosis Surgical History History of back surgery Family History Mother No problems noted. Father Diabetes Social History Housing: House Alcohol intake: current Alcohol intake frequency: holidays/special occasions only Alcohol type: hard liquor Patient Tobacco Use Status: Never used Tobacco e-Cigarette/Vaping Use: Never Used Second Hand Smoke Exposure: No service: No Current occupational status: employed Current occupational exposures/hazards: No Cognitive needs: No Hearing needs: No Vision needs: Yes Physical Exam Vital Signs: Last Vital Signs Temp 99.6 F 05/25/23 10:32 Pulse 100 05/25/23 10:32 BP 120/62 05/25/23 10:32 Pulse Ox 98 05/25/23 10:32 Oxygen Delivery Method Room Air 05/25/23 10:32 BMI result Body Mass Index 22.2 Const General: cooperative and healthy appearing Nutritional Appearance: well nourished Orientation/consciousness: patient oriented x3 Limitations: no limitations HEENT Head: Yes normal to inspection Eyes General: appearance normal, both eyes and all related structures Neck Neck: Yes normal visual inspection Chest Chest palpation & inspection: normal palpation of entire chest wall Resp Effort & Inspection: normal respiratory effort Neuro General: patient oriented x3 Assessment & Plan Assessment & Plan (1) Upper respiratory tract infection: Code(s): J06.9 - Acute upper respiratory infection, unspecified Plan: Antibiotics ordered. Increase fluid intake. Tylenol for aches and pains. If symptoms worsen, follow-up here for a recheck. Coding Level of Care Code Est Pt Level 3 (10714) Diagnoses Upper respiratory tract infection J06.9
== END 2023-05-25 11:37 | disposition home or self-care (01) ==
PROVIDERS: PCP Internal Medicine; Visit Provider Internal Medicine
DX: J06.9 Acute upper respiratory infection, unspecified (principal)
CPT/HCPCS: 99213

== ENCOUNTER 2023-09-16 08:07 | Outpatient (AMB) | payer OTHER, SELFPAY ==
[2023-09-16 08:27] VITALS: BP 118/70; PULSE 77; TEMP 36.7; O2SAT 97; BMI 22.1
--- NOTE | 2023-09-16 08:27 | MHC.OFFWIV ---
Intake Vital Signs 09/16/23 08:27 Height 5 ft 3 in Weight 125 lb BMI 22.1 BP 118/70 Blood Pressure Location Rt brachial Position Sitting Pulse 77 Pulse Source Pulse Oximeter Temp 98.1 F Temp Source Oral Pulse Oximetry (%) 97 Oxygen Delivery Method Room Air Intake Visit Reasons: EP ?UTI Intake Note: pt is here for possible uti Patient Tobacco Use Status: Never used Tobacco Allergies No Known Allergies Allergy (Verified 09/16/23 08:27) Do you need a note to return to daycare/school/sports/work: Yes HPI HPI Comments History of Present Illness Details This is a 22-year-old female with no stated past medical or abdominal surgical history presenting for evaluation of dysuria, urinating small amounts of urine and white vaginal discharge she has had for the past 1 week. Patient's last normal menstrual period was on September 02 2023. Patient is sexually active with a single male partner and does not use any barrier protection. Patient denies having any dyspareunia, hematuria, flank pain, fevers, chills, diarrhea or constipation. [facility] Medical History Left breast lump Scoliosis Surgical History History of back surgery Family History Mother No problems noted. Father Diabetes Social History Housing: House Alcohol intake: current Alcohol intake frequency: holidays/special occasions only Alcohol type: hard liquor Patient Tobacco Use Status: Never used Tobacco e-Cigarette/Vaping Use: Never Used Second Hand Smoke Exposure: No service: No Current occupational status: employed Current occupational exposures/hazards: No Cognitive needs: No Hearing needs: No Vision needs: Yes Review of Systems Const Denies chills, Denies fever(s) and Denies weakness Eyes Reports no additional complaints ENT Reports no additional complaints Card Reports no additional complaints Resp Reports no additional complaints GI Reports no additional complaints, Denies abdominal pain, Denies change in bowel habits, Denies constipation, Denies dyspepsia, Denies nausea and Denies vomiting Reports as per HPI, Denies hematuria, Denies dyspareunia, Reports dysuria, Denies urinary incontinence, Reports vaginal discharge, Denies vaginal odor and Denies vaginal pruritus Musc Reports no additional complaints Skin/Breast Reports system reviewed and no additional complaints, except as documented Neuro Reports no additional complaints and Denies weakness Psych Reports no additional complaints Endo Reports no additional complaints Physical Exam Vital Signs: Last Vital Signs Temp 98.1 F 09/16/23 08:27 Pulse 77 09/16/23 08:27 BP 118/70 09/16/23 08:27 Pulse Ox 97 09/16/23 08:27 Oxygen Delivery Method Room Air 09/16/23 08:27 BMI result Body Mass Index 22.1 afebrile Const General: cooperative, healthy appearing, comfortable, no acute distress, well developed, alert, awake and Physically active; No lethargic Nutritional Appearance: average body habitus Orientation/consciousness: patient oriented x3 and No lethargic Limitations: no limitations GI Inspection: Yes normal to inspection Palpation (GI): Soft to palpation, Tenderness to palpation present (GI) in the LLQ and suprapubicly, no guarding and not rigid Auscultation: normal bowel sounds General: Yes Bimanual renal exam normal bilaterally, No bladder normal to palpation (suprapubic tenderness) and Yes no CVA tenderness External Female Exam: normal external appearance Speculum Exam - Vagina: normal appearance of the vagina, abnormal vaginal discharge white (milky in appearance; no blood noted, no purulence), not erythematous, no foreign bodies and No vaginal bleeding Speculum Exam - Cervix: normal appearance of the cervix, normal palpation, Cervical os closed and normal vervical discharge Bimanual exam- vagina & uterus: normal bimanual exam, No bladder normal to palpation (suprapubic tenderness), normal palpation and no cervical motion tenderness OB/external & speculum: no foreign bodies and vaginal bleeding Back/Spine/Pelvis Back: no CVA tenderness Skin General skin exam: no rashes or lesions noted Neuro General: patient oriented x3 Psych Appearance: grossly normal Mental Status: mental status grossly normal Insight: Good insight present (Psych) Judgement: Good judgement present (Psych) Results Reviewed Results Reviewed: urinalysis reviewed with patient Assessment & Plan Assessment & Plan (1) Vaginosis: Comment: Speculum exam is performed and testing for BV, Angely, gonorrhea, chlamydia is pending at this time. Code(s): N76.0 - Acute vaginitis Plan: No further treatment is initiated at this time as urinalysis is not consistent with an acute urinary tract infection and there is no clinical suspicion nephrolithiasis. Patient will be treated based on results of pending testing. Orders: Orders CT NG by PCR Today N76.0 - Acute vaginitis Bacterial Vaginosis Panel Today N76.0 - Acute vaginitis Coding Level of Care Code Est Pt Level 4 (73848) Diagnoses Vaginosis N76.0 Time Spent (min) 25
== END 2023-09-16 09:36 | disposition home or self-care (01) ==
PROVIDERS: PCP Internal Medicine; Visit Provider Physician Assistant
DX: N76.0 Acute vaginitis (principal)
CPT/HCPCS: 81003; 99214

== ENCOUNTER 2023-09-16 09:01 | Outpatient (REF) | payer OTHER, SELFPAY | END 2023-09-16 09:02 | disposition home or self-care (01) | LOC: HO.LAB 09:01 | PROVIDERS: Visit Provider Physician Assistant | DX: Z13.89 Encounter for screening for other disorder (principal) ==

== ENCOUNTER 2023-10-15 16:27 | Outpatient (REF) | payer OTHER, SELFPAY ==
[2023-10-15 17:15] LABS: Appearance Urine Clear; Color Urine Yellow; Glucose Urine UA Negative (Negative); Leukocyte Esterase Urine Moderate (2+) (Negative); Nitrite Urine Negative (Negative); UMIC TRIGGER UACC YES; Urine Blood Negative (Negative); Urine Ketones Trace mg/dL (Negative); Urine Protein Negative (Neg-Trace)
[2023-10-15 17:21] LABS: Bacteria Urine 2+ (None Seen); Hyaline Casts Urine 0-2 /LPF (0-2); RBC Urine 0-2 /HPF (0-2); Squamous Epithelial Cell Urine 0-2 /HPF (0-2); UACC Culture Trigger YES; WBC Urine 21-50 /HPF (0-5)
== END 2023-10-15 16:28 | disposition home or self-care (01) ==
LOC: HO.LAB 16:27
PROVIDERS: PCP Internal Medicine; Visit Provider Internal Medicine
DX: R30.0 Dysuria (principal)
CPT/HCPCS: 81001; 87086; 87088; 87186

== ENCOUNTER 2024-03-18 08:37 | Outpatient (AMB) | payer OTHER, SELFPAY ==
--- NOTE | 2024-03-18 08:40 | MHC.PC.OV ---
Vital Signs 03/18/24 08:41 Height 5 ft 3 in Weight 123 lb 2 oz BMI 21.8 BP 100/68 Blood Pressure Location Lt brachial Position Sitting Pulse 94 Pulse Source Pulse Oximeter Temp 96.9 F Temp Source Skin Pulse Oximetry (%) 95 Oxygen Delivery Method Room Air Intake Visit Reasons: Annual PE Intake Note: Patient is here today for a physical. Chemical Research Engineer Required: No Aircraft Navigator: Not Required per policy Accompanied by: Self / Same As Patient Allergies oseltamivir Allergy (Intermediate, Verified 03/18/24 08:53) Vomiting Medication List - Last Reconciled 03/18/24 by MALINI Pearce ibuprofen 600 mg PO ONCE Ventolin HFA 90 mcg/actuation (albuterol sulfate) 2 puffs inhalation Q6H PRN 30 days NS Tobacco use date assessed: 03/18/24 Dental Screening Dental Screen Date: 03/18/24 Did you have a dental visit in the last 12 months?: Yes Did you have a dental problem in the last 6 months where you did not have access to dental care?: No Was dental information given to patient?: Patient has dentist HPI Annual PE HPI Details The patient is a 23 year female with significant past medical history of asthma, scolisosis, constipation She is here to day for annual eval reports that she has been having cold symptoms: symptoms started on thursday she went to urgent care on thursday and was given tamiflu for type flu A She was negative for covid She is experiencing hot flashes, sob, chest tight and has not eaten since thursday She denies sore throat, reports +nasal congetion-was clear on thursday, now it is yellowish Reports productive yellowish cough, hx of asthma reports that her ears get clogged at times on and off had a fever in the beginning of the week tx:tukol-like mucinex, b12, dayquil-without much improvement Dentist: up to date Eye: up to date Snellen:n/a Right: Left: Corrected vision: glasses STI screening:already done at [facility] Flu: up to date COVID: everyone except the latest booster Tdap:2020 Papsmer: up to date Diet: regular Exercise: not now [facility] Medical History Left breast lump Scoliosis Surgical History History of back surgery Family History Mother No problems noted. Father Diabetes Social History Housing: House Alcohol intake: current Alcohol intake frequency: holidays/special occasions only Alcohol type: hard liquor Patient Tobacco Use Status: Never used Tobacco e-Cigarette/Vaping Use: Never Used Second Hand Smoke Exposure: No service: No Current occupational status: employed Current occupational exposures/hazards: No Cognitive needs: No Hearing needs: No Vision needs: Yes Questionnaire PHQ-9 Over the last 2 weeks, how often have you been bothered by any of the following problems? 1. Little interest or pleasure in doing things: not at all 2. Feeling down, depressed, or hopeless: not at all 3. Trouble falling or staying asleep, or sleeping too much: not at all 4. Feeling tired or having little energy: more than half the days 5. Poor appetite or overeating: more than half the days 6. Feeling bad about yourself - or that you are a failure or have let yourself or your family down: not at all 7. Trouble concentrating on things, such as reading the newspaper or watching television: several days 8. Moving or speaking so slowly that other people could have noticed. Or the opposite - being so fidgety or restless that you have been moving around a lot more than usual: not at all 9. Thoughts that you would be better off or of hurting yourself in some way: not at all Total score: 5 Depression Screening Interpretation: Positive Depression Screening Follow-up: Existing condition and Follow-up Visit Requested Depression Screening Done: Yes 72132 - PHQ-9 Billing: Yes Source: Developed by Drs. Juno Barajas, Vero Figueroa, Mervin Hernandez and colleagues, with an educational ricardo from [employer]. Thrive Questionnaire Date Thrive assessed: 03/18/24 I am a: Patient What is your living situation today?: I have a steady place to live Within the past 12 months, did the food you bought not last and you didn't have the money to get more?: Often true Within the past 12 months, did you worry whether your food would run out before you got money to buy more?: Often true Do you have trouble paying for medicines?: I choose not to answer this question Do you have trouble getting transportation to medical appointments?: I choose not to answer this question Do you have trouble paying your heating and electricity bill?: I choose not to answer this question Do you have trouble taking care of your child, family member or friend?: I choose not to answer this question Do you have trouble with day-to-day activities such as bathing, preparing meals, shopping, managing finances, etc.?: I choose not to answer this question Are you currently unemployed and looking for a job?: Yes Are you interested in more education?: Yes Please select the resources that you would like help with: None Currently or been in a relationship where the following occur: No concerns reported THRIVE Score: 2 AUDIT C Alcohol Use Questionnaire (AUDIT-C) 1. How often do you have a drink containing alcohol?: Monthly or less 2. How many drinks containing alcohol do you have on a typical day when you are drinking?: 1 or 2 3. How often do you have six or more drinks on one occasion?: Never Total Score: 1 Score Reviewed/Action Taken: Yes RAH-7 AMB Questionnaire RAH-7 Date RAH - 7 assessed: 03/18/24 Feeling nervous, anxious, or on edge: 3 = Nearly every day Not being able to stop or control worryin = Not at all Worrying too much about different things: 0 = Not at all Trouble relaxin = Not at all Being so restless that it is hard to sit still: 1 = Several days Becoming easily annoyed or irritable: 1 = Several days Feeling afraid as if something awful might happen: 0 = Not at all Total RAH-7 score (0-4 normal; 5-9 mild; 10-14 moderate; 15-21 severe): 5 Source: Developed by Drs. Juno Barajas, Vero Figueroa, Mervin Hernandez and colleagues, with an educational ricardo from [employer]. RAH-7 Assessment Billing RAH-7 Assessment Tool: RAH-7 Assessment 69503 Review of Systems Const Details: Denies chills, Denies fatigue, Denies fever(s), Denies headache(s) and Denies weakness HEENT Denies change in vision, Denies dizziness, Denies headache(s), Denies hearing loss, + nasal congestion, + sinus pain, Denies sinus pressure and Denies sore throat +ear fullness on and off Card Denies chest pain, Denies lightheadedness, Denies other (palpitations) Resp + productive cough, + shortness of breaths and+ wheezing GI Denies abdominal pain, Denies melena, Denies hematochezia, Denies change in bowel habits, Denies dyspepsia and Denies nausea + ongoing on and constipation Denies hematuria and Denies dysuria Musc Denies abnormal gait, Denies myalgias, Denies arthralgias, Denies numbness and Denies tingling Skin/Breast Denies rash, Denies unusual bruising and Denies wounds Neuro Denies abnormal gait, Denies dizziness, Denies headache(s), Denies memory loss, Denies numbness, Denies Sensory deficit (Neuro), Denies tingling and Denies weakness Psych Denies anxiety, Denies depression and Denies memory loss Endo Denies cold intolerance, Denies fatigue, Denies heat intolerance, Denies polydipsia and Denies polyuria Mick/Lymph Denies easy bleeding and Denies easy bruising Aller/Immun +wheezing Physical exam (Primary Care) Vital Signs: Last Vital Signs Temp 96.9 F 03/18/24 08:41 Pulse 94 03/18/24 08:41 BP 100/68 03/18/24 08:41 Pulse Ox 95 03/18/24 08:41 Oxygen Delivery Method Room Air 03/18/24 08:41 BMI result Body Mass Index 21.8 Tobacco/Smoking Status: Tobacco use Status Tobacco use date assessed 03/18/24 03/18/24 08:43 Patient Tobacco Use Status Never used Tobacco 03/18/24 08:43 e-Cigarette/Vaping Use Never Used 03/18/24 08:43 PHQ-9: PHQ-9 Score PHQ-9: Total score 5 03/18/24 09:54 Depression Screening Interpretation: Positive Depression Screening Follow-up: Existing condition and Follow-up Visit Requested Thrive Assessment: Date of Thrive Assessment Date Thrive assessed 03/18/24 03/18/24 08:43 Currently or been in a relationship where the following occur: No concerns reported Const Other: General: no acute distress, well developed, alert and awake Nutritional Appearance: well nourished Orientation/consciousness: patient oriented x3 [facility] Head: Yes normocephalic and Yes atraumatic Ears: hearing grossly normal bilaterally and TM's normal bilaterally General nose exam: Normal external nose present and bilateral nares, red/swelling, left nare with yellowish drainage, +frontal and left maxillary sinus pressure Mouth: Normal oral and palatal mucosa present and moist mucous membranes Teeth and gingiva: dentition normal Throat: Yes oropharynx normal Eyes Pupils: Equal, round and reactive pupils present and Pupil accommodation reflex normal EOM: EOMs intact bilaterally Neck Neck: Yes normal visual inspection, Yes no lymphadenopathy and Yes trachea midline Thyroid: Thyroid normal Carotids: no bruits Lymphatic: no lymphadenopathy noted Chest Chest palpation & inspection: normal inspection of the chest Resp Effort & Inspection: normal respiratory effort Auscultation: inpiratory wheezes Cardio Rate: regular rate Rhythm: regular rhythm Heart sounds: S1 normal heart sound present, S2 normal heart sound present, no gallops, no murmurs and no rubs Bruits: no abdominal aortic bruits and no carotid bruits GI Palpation (GI): No Abdominal aortic bruit present, Soft to palpation, nontender, No hepatosplenomegaly present and No Rebound tenderness present Auscultation: normal bowel sounds other: LLQ tenderness, RUQ tendernes, +ford sign General: Yes no CVA tenderness Back/Spine/Pelvis Back: no CVA tenderness Cervical Spine: cervical ROM normal and No Cervical spine tenderness Thoracic/Lumbar Spine: thoraco-lumbar ROM normal, No pain with thoraco-lumbar ROM, No thoracic spinal tenderness and No lumbar spinal tenderness Skin General: warm and dry. Normal skin color. Normal skin turgor Lesions: no lesions Rashes: no rashes Trauma: no lacerations or abrasions Wounds: no wounds Nails: normal Neuro General: patient oriented x3, gait normal and CN's II-XI intact bilaterally Cranial nerves: Yes Equal, round and reactive pupils present Cognition (Neuro): normal cognition Gait exam (Neuro): Normal gait present Motor exam (neuro): 5/5 motor strength present throughout Sensory Exam: No Sensory deficit (Neuro) Deep tendon reflexes (DTR's): Right patellar reflex intensity grade: 2+ and Left patellar reflex intensity grade: 2+ Extrem General: Yes normal to inspection, No edema and No calf tenderness Psych Appearance: grossly normal Affect: normal affect Attitude: cooperative Thought process: Normal thought process present Coding Level of Care Code Est Pt Prev Care 18-39y(65791) Diagnoses Annual physical exam Z00.00 Abdominal pain R10.31 Abdominal location: right lower quadrant Acute bacterial sinusitis J01.90; B96.89 Wheezing on inspiration R06.2 Additional Codes RAH-7 Assessment Billing - RAH-7 Assessment Tool: RAH-7 Assessment 44285 ([id number]) PHQ-9 - 95701 - PHQ-9 Billing: Yes ([id number]) Assessment & Plan Assessment & Plan (1) Annual physical exam: Code(s): Z00.00 - Encounter for general adult medical examination without abnormal findings Category: Medical Plan: The patient is up-to-date on all her screenings. No recent labs. Lab ordered the patient to do as soon as possible Declines STD screening, was already done at OBGYN per patient (2) Abdominal pain: Code(s): R10.9 - Unspecified abdominal pain Category: Medical Qualifiers: Abdominal location: right lower quadrant Qualified Code(s): R10.31 - Right lower quadrant pain Plan: Positive Ford's sign on exam. Tenderness on palpation at left lower quadrant as well-hx constipation Abdominal ultrasound ordered (3) Acute bacterial sinusitis: Code(s): J01.90 - Acute sinusitis, unspecified; B96.89 - Other specified bacterial agents as the cause of diseases classified elsewhere Category: Medical Plan: Frontal and left maxillary sinus pressure. Bilateral nares erythema/edema-yellowish exudate present in left nare Restart the patient Augmentin b.i.d. x7 (4) Wheezing on inspiration: Code(s): R06.2 - Wheezing Category: Medical Plan: Wheezing on expiration throughout, history of asthma Patient has been using rescue inhaler with some effect Will started the patient prednisone tapered, continue rescue inhaler, increase fluid intake Plan To return in 1 year for her next annual physical examination with her PCP Orders: Orders Complete Blood Count Auto Diff 03/18/24 R10.31 - Right lower quadrant pain, Z00.00 - Encounter for general adult medical examination without abnormal findings Comprehensive [place]. Panel Fast 03/18/24 R10.31 - Right lower quadrant pain, Z00.00 - Encounter for general adult medical examination without abnormal findings Lipid Panel 03/18/24 R10.31 - Right lower quadrant pain, Z00.00 - Encounter for general adult medical examination without abnormal findings Vitamin D 25-OH Total 03/18/24 R10.31 - Right lower quadrant pain, Z00.00 - Encounter for general adult medical examination without abnormal findings Glucose Fasting 03/18/24 R10.31 - Right lower quadrant pain, Z00.00 - Encounter for general adult medical examination without abnormal findings TSH reflex Free T4 03/18/24 R10.31 - Right lower quadrant pain, Z00.00 - Encounter for general adult medical examination without abnormal findings UA CC w/rflx Micro + Cult 03/18/24 R10.31 - Right lower quadrant pain, Z00.00 - Encounter for general adult medical examination without abnormal findings US abdomen complete 03/18/24 R10.31 - Right lower quadrant pain Medications: New amoxicillin-pot clavulanate 500-125 mg (Augmentin) 1 tab PO Q12H 7 days 14 tabs 0RF prednisone see taper instructions take 4 tabs x2 day, take 3 tabs x2 day, take 2 tabs x2 days, take 1 tab x 2 days =20 tabs for 8 days 10 mg PO DIRECTED 20 tabs 0RF
[2024-03-18 08:41] VITALS: BP 100/68; PULSE 94; TEMP 36.1; O2SAT 95; BMI 21.8
--- OUTSIDE RECORDS SUMMARY | 2024-03-18 08:50 | XMS_ITS | Encounter Summary ---
Author Organization [facility] Address [address] [place] [phone] Phone Care Team Providers Care Grain And Yeast Plants Supervisor Name Role Phone Melita Bruce MD Primary Care Provider [phone] Encounter Details Date Type Department Care Team (Late st Contact Info) Description 10/02/2016 Documentation [facility] [place] Family Medicine [address] [place], [place] [id number] Family Medicine, Physician [address], [place] [address] Social History Tobacco Use Types Packs/Day Years Used Date Smoking Tobacco: Never Comments:Never smoker Comments Unknown Sex and Gender Information Value Date Recorded Sex Assigned at Not on file Legal Sex Female 5:20 PM EDT Gender Identity Not on file Sexual Orientation Not on file documented as of this encounter Plan of Treatment Not on file documented as of this encounter Visit Diagnoses Not on filedocumented in this encounter Care Teams Grain And Yeast Plants Supervisor Relationship Specialty Start Date End Date Melita Bruce MD [address] [place] [id number] PCP - General 09/26/16 11/04/21 documented as of this encounter
--- OUTSIDE RECORDS SUMMARY | 2024-03-18 08:50 | XMS_ITS | Encounter Summary ---
Author Organization [facility] Address [address] [place] [address] Phone Care Team Providers Care Garage Construction Equipment Mechanic Name Role Phone Melita Bruce MD Primary Care Provider [phone] Encounter Details Date Type Department Care Team (Late st Contact Info) Description 01/22/2012 Documentation [facility] [place] [address] [place] [address] Family Medicine, Physician [address] [place] [place], [place] [id number] Social History Tobacco Use Types Packs/Day Years Used Date Smoking Tobacco: Never Assessed Comments Unknown Sex and Gender Information Value Date Recorded Sex Assigned at Not on file Legal Sex Female 5:20 PM EDT Gender Identity Not on file Sexual Orientation Not on file documented as of this encounter Plan of Treatment Not on file documented as of this encounter Visit Diagnoses Not on filedocumented in this encounter Care Teams Garage Construction Equipment Mechanic Relationship Specialty Start Date End Date Melita Bruce MD [address] [place] [id number] PCP - General 09/26/16 11/04/21 documented as of this encounter
--- OUTSIDE RECORDS SUMMARY | 2024-03-18 08:50 | XMS_ITS | Encounter Summary ---
Author Organization [facility] Address [address] [place] [address] Phone Care Team Providers Care Rn Bsn Name Role Phone Melita Bruce MD Primary Care Provider [phone] Encounter Details Date Type Department Care Team (Late st Contact Info) Description 10/02/2016 Conversion Encounter [facility] [place] [address] [place] [address] Social History Tobacco Use Types Packs/Day Years [...] on filedocumented in this encounter Care Teams Rn Bsn Relationship Specialty Start Date End Date Melita Bruce MD [address] [place] [address] PCP - General 09/26/16 11/04/21 documented as of this encounter
--- OUTSIDE RECORDS SUMMARY | 2024-03-18 08:50 | XMS_ITS | Encounter Summary ---
Author Organization [facility] Address [address] [place] [phone] Phone Care Team Providers Care Signs Cleaner Name Role Phone Melita Bruce MD Primary Care Provider [phone] Reason for Visit * Reason Comments Med Refill Encounter Details Date Type Department Care Team ([facility] st Contact Info) Description 11/05/2020 Refill [facility] [address] [place] [address] Magdalena Krishnan MD [address] [facility] [address] [place] [address] Insect bite of left foot with local reaction, initial encounter Social History Tobacco Use Types Packs/Day Years Used Date Smoking Tobacco: Never Smokeless Tobacco: Never Comments:Never smoker Alcohol Use Standard Drinks/Week Comments No 0 (1 standard drink = 0.6 oz pur e alcohol) Hunger/Food Answer Date Recorded In the last 12 months, did y ou or your family ever eat less than you felt you should because there wasn't enough money for food? No 11/03/2019 Stable Housing Answer Date Recorded Are you worried that in the next 2 months you may not have stable housing? No 11/03/2019 Transportation Concerns Answer Date Rec orded In the last 12 months, have you or your family ever had to go without healthcare because you didn't have a way to get there? No 11/03/2019 Hazards in Home Answer Date Recorded Think about the place you li ve. Do you have problems with any of the following? Pests (mice or roaches), mold, no/not working smoke detectors, water leaks, no window guards. No 2019 Financing Utilities Answer Date Recorde d In the last 12 months, has t he electric, gas, oil, or water company threatened to shut off your services in your home? No 11/03/2019 Safety at Home Answer Date Recorded Are you or your family worried about feeling saf e in your home? No 11/03/2019 Outside Support Answer Date Recorded Do you feel that you need mo re support from other people or programs to help you care for yourself or your family? No 11/03/2019 Understanding Health Concerns Answer Da te Recorded Do you need help understandi ng your or your child's healthcare needs (diagnosis, medications, plan, etc.)? No 11/03/2019 Financing Health Concerns Answer Date R ecorded In the last 12 months, was t here a time when your child needed to see a doctor or get medications or supplies but could not because of cost? No 11/03/2019 Missing School or Work Answer Date Ronny rded Did you or your child miss s chool or work because of a health problem that could have been avoided? No 11/03/2019 Comments No Sex and Gender Information Value Date Recorded Sex Assigned at Not on file Legal Sex Female 5:20 PM EDT Gender Identity Not on file Sexual Orientation Not on file documented as of this encounter Miscellaneous Notes * Telephone Encounter - Marie Amaya LPN - 11/05/2020 4:07 PM EDT Pharm requesting refill loratadine. EH documented in this encounter Plan of Treatment Not on file documented as of this encounter Visit Diagnoses Diagnosis Insect bite of left foot with local reaction, initial encounter documented in this encounter Care Teams Signs Cleaner Relationship Specialty Start Date End Date Melita Bruce MD [address] [place] [address] ELVIRA Garcia [id number] PCP - General 09/26/16 11/04/21 documented as of this encounter
--- OUTSIDE RECORDS SUMMARY | 2024-03-18 08:50 | XMS_ITS | Encounter Summary ---
Author Organization [facility] Address [address] [place] [phone] Phone Care Team Providers Care Ambulatory Care Nurse Name Role Phone Melita Bruce MD Primary Care Provider [phone] Encounter Details Date Type Department Care Team (Late st Contact Info) Description 06/28/2014 Documentation [facility] [place] Family Medicine [address] [place] [address] Family Medicine, Physician [address], [place] [phone] Social History Tobacco Use Types Packs/Day Years [...] on filedocumented in this encounter Care Teams Ambulatory Care Nurse Relationship Specialty Start Date End Date Melita Bruce MD [address] [place] [id number] PCP - General 09/26/16 11/04/21 documented as of this encounter
--- OUTSIDE RECORDS SUMMARY | 2024-03-18 08:50 | XMS_ITS | Clinical Summary ---
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 Kirkland, at [facility], for her back and leg pain on 02/17/2019. In November 2019 she had been prescribed diclofenac for her pain but was not taking it every day because she did not like to take medications. Dr. Kirkland thought her back and joint pain pattern was suggestive of a possible spondyloarthritis. Assessment & Plan (06/19/2020 12:55 PM EDT): Will refer back to physical therapy. Will refer to rheumatology since Dr. Kirkland is now retired Need for case management follow-up 11/03/2019 Overview (11/03/2019): Routine urine STI screen not done 11/03/2019 Due to National shortage of tests Idiopathic scoliosis 04/15/2012 Overview (06/09/2017): Followed by Jenifer Davalos 6 months. Braced. 07/2014 [facility] reccommends spinal fusion. Fusion T4 -L3 02/2015. Needs antibiotic prophylaxis for Dental procedures per Dr Garcia at [facility] - amox 2 grams 1 hour prior to dentist Assessment & Plan (06/19/2020 12:40 PM EDT): Was seen at [facility] on 01/17/2020 for persistent back pain. She was 5 years status post posterior instrumentation, correction, and fusion for adolescent idiopathic scoliosis. Her exam was nondiagnostic. An x-ray was done which showed no changes in her hardware position. No evidence of any fractures, instability, or new lesions. She had a residual curvature 30 degrees with 2 well-balanced curves. She is a risser 5. She was referred to physical therapy to restart a lumbar stabilization program. She never made it to physical therapy due to insurance issues. Will refer back now. Assessment & Plan (11/03/2019 4:09 PM EDT): Has FU at [facility] in Jan - appt earlier this year canceled due to coronavirus pandemic No longer seeing dr Kirkland for back pain Use motrin occas for pain Assessment & Plan (08/26/2018 10:58 AM EDT): Sees [facility] Q 6 months for back. Last seen last month Also seeing Dr Kirkland for chronic back pain. ? Neurogenic or neuropathic or post surg disordered pain syndrome. Started on Meloxicam daily. Pt takes prn only. Last seen last month Also doing P.T. weekly Assessment & Plan (08/25/2017 8:05 AM EDT): Seen at [facility] last month for some chronic hip. Labs, Xray & MRI (of back) unremarkable. Hardware in place Pt to see Dr Kirkland this week to evaluate chronic pain of right hip Learning disability 04/15/2012 Overview (08/25/2017): Had IEP for [employer]. Grad HS 2017 Assessment & Plan (11/03/2019 4:08 PM EDT): Graduated. Not in school Assessment & Plan (08/26/2018 10:59 AM EDT): No school Assessment & Plan (08/25/2017 7:54 AM EDT): [facility] in Fall - they will provide supports Resolved Problems Problem Noted Date Diagnosed Date Resolved Date Acne vulgaris 12/10/2015 08/26/2018 Assessment & Plan (08/25/2017 7:45 AM EDT): On cleocin T gel & BP Doing well Immunizations Name Administration Dates Next Due COVID-19 Moderna, monovalent , 12+ years 06/13/2020,06/13/2020 DTaP 5 11/30/2002, 1,06/05/1999,03/26,01/22/1999 HPV, Quadrivalent 04/14/2011,07/09/2010,02/21/19 11 Hep A, ped/adol 04/27/2013,07/09/2010 Hep B, ped/adol 11/19/1999,08/21/1999,06/05/1999 Hib (PRP-T) 02/12/2000, 0,03/26/1999,01/22 IPV 11/30/2002, 0,03/26/1999,01/22 Influenza Split 04/15/2012,2010,02/21/2010 Influenza, injectable, quadrivalent 12/10/2015,0 07/02/2015,12/18/2013 Influenza, injectable, quadr ivalent, preservative free 11/03/2019,02/01/2018,04/27/2013 Influenza, injectable, trivalent 01/08/2009,11/0 06/2007 MMR 11/30/2002,02/12/2000 Meningococcal Conj (Menactra) MCV4P 07/08/2016,0 02/21/2010 Pneumococcal Conjugate 05/12/2000,02/12/2000,04/1999 Td (adult) (Tenivac), 5 Lf t etanus toxoid, PF, adsorbed 10/12/2020 Tdap 02/21/2010 Varicella 12/22/2007,11/19/1999 Family History Medical History Relation Name Comments Migraines Mother Dental caries Other Family hx Diabetes Other Family hx Autism Sister Relation Name Status Comments Brother Alive Father Alive Mother Alive Other Family hx Family history of *Dental caries, No family history of Hyperlipidemia, No family history of *Sudden /[place] under 55, Family history of Diabetes mellitus, No family history of *Heart Disease, No family history of *CVA/Stroke Sister Alive Social History Tobacco Use Types Packs/Day Years [...] on file Sexual Orientation Not on file Last Filed Vital Signs Vital Sign Reading Time Taken Comments Blood Pressure 112/74 10/12/2020 3:36 PM EDT Pulse 77 10/12/2020 3:36 PM EDT Temperature 35.9 ??C (96.6 ??F) 06/19/2020 1 1:26 AM EDT Respiratory Rate - - Oxygen Saturation - - Inhaled Oxygen Concentration - - Weight 53.9 kg (118 lb 12.8 oz) 10/12/2020 3:36 PM EDT Height 160 cm (5' 3 ) 10/12/2020 3:36 PM EDT Body Mass Index 21.04 10/12/2020 3:36 PM EDT Plan of Treatment Health Maintenance Due Date Last Done Comments Influenza Vaccines (#1) 2023 11/03/19, 02/01/2018, 12/10/2015, Additional history exists COVID-19 Vaccine ( season) 2023 07/19/2020, 06/13/2020, 06/13/2020 DTaP,Tdap,and Td Vaccines (8 - Td or Tdap) 10/12/2030 10/12/2020, 02/21/2010, 11/30/2002, Additional history exists Hepatitis B Vaccines Completed 11/19/1999, 08/21/1999, 06/05/1999 HIB Vaccines Completed 02/12/2000, 05/17, 03/26/1999, Additional history exists Pneumococcal Vaccine Completed 05/12/2000, 02/12/2000, 11/19/1999 IPV Vaccines Completed 11/30/2002, 05/17, 03/26/1999, Additional history exists MMR Vaccines Completed 11/30/2002, 02/12/2000 Varicella Vaccines Completed 12/22/2007, 11/19/1999 HPV Vaccines Completed 04/14/2011, 06/17, 02/21/2010 Hepatitis A Vaccines Completed 04/27/2013, 07/10/19 11 Meningococcal Vaccine Completed 07/08/2016, 011 Men B Vaccine Aged Out No longer live gonzalez based on patient's age to complete this topic Procedures * Due to [place] 30 Second Showcase law, this organization might not be sharing sensitive test results. Procedure Name Priority Date/Time Associated Diagnosis Comments CHLAMYDIA AND GONORRHEA, AMPLIFIED Routine 10/12/2020 4:58 PM EDT Routine screening for STI (sexually transmitted infection) from Last 3 Months or Most Recently Relevant to Health Maintenance Results * Due to [place] 30 Second Showcase law, this organization might not be sharing sensitive test results. * Chlamydia and Gonorrhoea, Amplified (10/12/2020 4:58 PM EDT) Chlamydia Trachomatis, DNA Probe NEGATIVE (NEG) [facility] Comment: No Chlamydia Trachomatis RNA detected in this patient's sample ? (REFERENCE RANGE/NORMAL VALUE: NOT DETECTED) ? Note: This test uses enrollment advisor- mediated amplification method to detect rRNA from C. Trachomatis URINE GC AMP PROBE NEGATIVE (NEG) [facility] Comment: No Neisseria Gonorrhoeae RNA detected in this patient's sample ? (REFERENCE RANGE/NORMAL VALUE: NOT DETECTED) ? NOTE: This test uses enrollment advisor-mediated amplification method to detect rRNA from N.Gonorrhoeae. A negative result does not preclude infection. In the case of a negative urine result, testing of an endocervical(female) or urethral (male) specimen is recommended if there is high clinical suspicion of infection. Due to very high sensitivity of Nucleic Acid Amplification Test, false positive results may occur. Therefore, specimen handling is extremely important. In patients in whom the disease is unlikely, additional sample for testing should be considered after an initial positive result. The performance characteristics of this test have not been evaluated in children. The Aptima Combo2 assay is not intended for the evaluation of suspected sexual abuse or for other medico-legal indications. The ordering provider should assess if the patient had consensual sex without risk of sexual abuse. Consult the [facility] if needed. Contact phone number . Therapeutic failure or success cannot be determined with the Aptima Combo2 assay since nucleic acid may persist following appropriate antimicrobial therapy. The Centers for Disease Control and Prevention (CDC) recommends confirmatory retesting using culture or a different nucleic acid amplification test when positive results occur, if indicated. Testing performed or reported by [facility], a Service of [facility], [facility] [place] [address] Salvatore Lee MD, Sports Book Board Attendant [facility]# [id number] Urine 10/12/2020 4:58 PM EDT 10/13/2020 1:29 AM EDT us Magdalena Krishnan MD LAB MICROBIOLOGY - GENERAL NINFA CARLTON Final Result [facility] from Last 3 Months or Most Recently Relevant to Health Maintenance
--- OUTSIDE RECORDS SUMMARY | 2024-03-18 08:50 | XMS_ITS | Encounter Summary ---
Author Organization [facility] Address [address] [place] [address] Phone Care Team Providers Care Barrel Bridge Assembler Name Role Phone Melita Bruce MD Primary Care Provider [phone] Encounter Details Date Type Department Care Team (Late st Contact Info) Description 03/07/2016 Documentation [facility] [place] [address] [place] [address] Family Medicine, Physician [address], [place] 27[address] Social History Tobacco Use Types Packs/Day Years [...] on filedocumented in this encounter Care Teams Barrel Bridge Assembler Relationship Specialty Start Date End Date Melita Bruce MD [address] [place] [address] PCP - General 09/26/16 11/04/21 documented as of this encounter
--- OUTSIDE RECORDS SUMMARY | 2024-03-18 08:50 | XMS_ITS | Encounter Summary ---
Author Organization [facility] Address [address] [place] [address] Phone Care Team Providers Care Cream Gatherer Name Role Phone Melita Bruce MD Primary Care Provider [phone] Encounter Details Date Type Department Care Team (Late st Contact Info) Description 06/18/2010 Documentation [facility] [place] Family Medicine [address] [place] [address] Family Medicine, Physician [address] [place], [place] [id number] Social History Tobacco Use Types Packs/Day Years [...] on filedocumented in this encounter Care Teams Cream Gatherer Relationship Specialty Start Date End Date Melita Bruce MD [address] [place] [address] PCP - General 09/26/16 11/04/21 documented as of this encounter
--- OUTSIDE RECORDS SUMMARY | 2024-03-18 08:50 | XMS_ITS | Continuity of Care Document ---
Author Organization [facility] Address [address] [place] [address]- Care Team Providers Care Dressage Instructor Name Role Phone Melita Bruce MD Primary Care Physician [phone] Encounter [facility] [place] Date(s): 02/08/24 - 03/09/24 [facility] [address] [place] [address]- Attending Physician: Angeles West Admitting Physician: Angeles West Referring Physician: Angeles West Encounter Type: Triage Allergies, Adverse Reactions, Alerts No Known Allergies Medications Advil By Mouth, Every 6 hours, Refills 0, Maintenance, 06/18/20 2:59:00 PM EDT, Partial fill upon patient request if the prescription is for a schedule II opioid drug. Start Date: 06/18/20 Status: Ordered Repeat number: 1 Hair Skin and Nails oral tablet By Mouth, Daily, 0 Refills, Maintenance, 02/08/24 11:46:00 AM EST, Partial fill upon patient request if the prescription is for a schedule II opioid drug. Start Date: 02/08/24 Status: Ordered Repeat number: 1 Ventolin HFA 108 mcg/inh inhalation aerosol with adapter 2 inhalation = 180 mcg, Inhalation, Every 4 hours, PRN as needed for shortness of breath or wheezing, # 6.7 Gm, 0 Refills, Maintenance, 02/08/24 11:45:00 AM EST, Aerosol, Partial fill upon patient request if the prescription is for a schedule II opioid drug. Start Date: 02/08/24 Status: Ordered Quantity: 6.7 Unit: g Repeat number: 1 Vitamin B12 50 mcg oral tablet 1 tablet = 50 mcg, By Mouth, Daily, # 30 tablet, 0 Refills, Maintenance, 02/08/24 11:46:00 AM EST, Tablet, Partial fill upon patient request if the prescription is for a schedule II opioid drug. Start Date: 02/08/24 Status: Ordered Quantity: 30.0 Unit: tablet Repeat number: 1 Problem List Condition Confirmation Course Effective Dates Status Health St atus Informant Anxiety Confirmed Active History of kidney stones Confirmed Active Social History Social History Type Response Smoking Status Never (less than 100 in lifetime) entered on: 06/18/20 Sex Sex Representation Female (finding) Patient Care team information Care Team Personnel Name: Melita Bruce MD Position: [facility] Physician - Pediatrics Member Role: PCP Address: [address] [place] [address] [facility] [address] Telecom: Care Team Related Persons Name: RICARDO ARTHUR Name: SPENSER ARTHUR Insurance Providers Guarantor name: STEFANY ARTHUR Health Plan Information #: 1 Payer: [employer] Member Number: NA Policy Number: NA Group Number: [id number]
== END 2024-03-18 09:41 | disposition home or self-care (01) ==
PROVIDERS: PCP Internal Medicine
DX: Z00.00 Encounter for general adult medical examination without abnormal findings (principal); R10.31 Right lower quadrant pain; J01.90 Acute sinusitis, unspecified; B96.89 Other specified bacterial agents as the cause of diseases classified elsewhere; R06.2 Wheezing

== ENCOUNTER 2024-03-18 08:37 | Outpatient (REF) | payer OTHER, SELFPAY ==
[2024-03-18 09:51] LABS: MANUAL DIFF FLAG NO
--- OUTSIDE RECORDS SUMMARY | 2024-03-18 10:18 | XMS_ITS | Encounter Summary ---
Author Organization [facility] Address [address] [place] [address] Phone Care Team Providers Care Screw Machine Hand Name Role Phone Melita Bruce MD Primary Care Provider [phone] Encounter Details Date Type Department Care Team (Late st Contact Info) Description 10/02/2016 Conversion Encounter [facility] [address] [place] [address] Social History Tobacco Use Types Packs/Day Years [...] on filedocumented in this encounter Care Teams Screw Machine Hand Relationship Specialty Start Date End Date Melita Bruce MD [address] [place] [address] PCP - General 09/26/16 11/04/21 documented as of this encounter
--- OUTSIDE RECORDS SUMMARY | 2024-03-18 10:18 | XMS_ITS | Encounter Summary ---
Author Organization [facility] Address [address] [place] [address] Phone Care Team Providers Care Psychologist Experimental Name Role Phone Melita Bruce MD Primary Care Provider [phone] Reason for Visit * Reason Comments Med Refill Encounter Details Date Type Department Care Team ([facility] st Contact Info) Description 11/05/2020 Refill [facility] [address] [place] [address] Magdalena Krishnan MD [address] [facility] [address] [place] [address] Insect bite of left foot with local [...] encounter documented in this encounter Care Teams Psychologist Experimental Relationship Specialty Start Date End Date Melita Bruce MD [address] [place] [address] ELVIRA Garcia [address] PCP - General 09/26/16 11/04/21 documented as of this encounter
--- OUTSIDE RECORDS SUMMARY | 2024-03-18 10:18 | XMS_ITS | Encounter Summary ---
Author Organization [facility] Address [address] [place] [address] Phone Care Team Providers Care Customer Experience Specialist Name Role Phone Melita Bruce MD Primary Care Provider [phone] Encounter Details Date Type Department Care Team (Late st Contact Info) Description 06/18/2010 Documentation [facility] [place] [address] [place] [address] Family Medicine, Physician [address] [place], [place] 7220[address] Social History Tobacco Use Types Packs/Day Years [...] on filedocumented in this encounter Care Teams Customer Experience Specialist Relationship Specialty Start Date End Date Melita Bruce MD [address] [place] [address] PCP - General 09/26/16 11/04/21 documented as of this encounter
--- OUTSIDE RECORDS SUMMARY | 2024-03-18 10:18 | XMS_ITS | Encounter Summary ---
Author Organization [facility] Address [address] [place] [address] Phone Care Team Providers Care Look Out Tower Fire Watcher Name Role Phone Melita Bruce MD Primary Care Provider [phone] Encounter Details Date Type Department Care Team (Late st Contact Info) Description 06/28/2014 Documentation [facility] [place] [address] [place] [address] Family Medicine, Physician [address], [place] 288691 Social History Tobacco Use Types Packs/Day Years [...] on filedocumented in this encounter Care Teams Look Out Tower Fire Watcher Relationship Specialty Start Date End Date Melita Bruec MD [address] [place] [address] PCP - General 09/26/16 11/04/21 documented as of this encounter
--- OUTSIDE RECORDS SUMMARY | 2024-03-18 10:18 | XMS_ITS | Encounter Summary ---
Author Organization [facility] Address [address] [place] [address] Phone Care Team Providers Care Coil Winding Machines Set Up Mechanic Name Role Phone Melita Bruce MD Primary Care Provider Encounter Details Date Type Department Care Team (Late st Contact Info) Description 03/07/2016 Documentation [facility] [place] Family Medicine [address] [place] [address] Family Medicine, Physician [address] [place], [place] 913561 Social History Tobacco Use Types Packs/Day Years [...] on filedocumented in this encounter Care Teams Coil Winding Machines Set Up Mechanic Relationship Specialty Start Date End Date Melita Bruce MD [address] [place] [address] PCP - General 09/26/16 11/04/21 documented as of this encounter
--- OUTSIDE RECORDS SUMMARY | 2024-03-18 10:18 | XMS_ITS | Encounter Summary ---
Author Organization [facility] Address [address] [place] [address] Phone Care Team Providers Care Bus Monitor Name Role Phone Melita Bruce MD Primary Care Provider [phone] Encounter Details Date Type Department Care Team (Late st Contact Info) Description 01/22/2012 Documentation [facility] [place] Medicine [address] [place] [address] Family Medicine, Physician [address] [place], [place] [address] Social History Tobacco Use Types Packs/Day Years [...] on filedocumented in this encounter Care Teams Bus Monitor Relationship Specialty Start Date End Date Melita Bruce MD [address] [place] [address] PCP - General 09/26/16 11/04/21 documented as of this encounter
--- OUTSIDE RECORDS SUMMARY | 2024-03-18 10:18 | XMS_ITS | Clinical Summary ---
Author Organization [facility] Address [address] [place] [address] Phone Care Team Providers Care Special Loan Officer Name Role Phone Unavailable Primary Care Provider [...] was last seen by Dr. Kirkland, at [facility], for her back and leg pain on [...] by Jenifer Davalos 6 months. Braced. 07/2014 [facility] reccommends spinal fusion. Fusion T4 -L3 02/2015. Needs antibiotic prophylaxis for Dental procedures per Dr Garcia at [facility] - amox 2 grams 1 hour prior to dentist Assessment & Plan (06/19/2020 12:40 PM EDT): Was seen at [facility] on 01/17/2020 for persistent back pain. [...] (11/03/2019 4:09 PM EDT): Has FU at [facility] in Jan - appt earlier this year canceled due to coronavirus pandemic No longer seeing dr Kirkland for back pain Use motrin occas for pain Assessment & Plan (08/26/2018 10:58 AM EDT): Sees [facility] Q 6 months for back. Last seen last month Also seeing Dr Kirkland for chronic back pain. ? Neurogenic or neuropathic or post surg disordered pain syndrome. Started on Meloxicam daily. Pt takes prn only. Last seen last month Also doing P.T. weekly Assessment & Plan (08/25/2017 8:05 AM EDT): Seen at [facility] last month for some chronic hip. [...] of Hyperlipidemia, No family history of *Sudden /[place] under 55, Family history of Diabetes mellitus, [...] complete this topic Procedures * Due to [place] Fiz law, this organization might not be sharing sensitive test results. Procedure Name Priority Date/Time Associated Diagnosis Comments CHLAMYDIA AND GONORRHEA, AMPLIFIED Routine 10/12/2020 4:58 PM EDT Routine screening for STI (sexually transmitted infection) from Last 3 Months or Most Recently Relevant to Health Maintenance Results * Due to [place] F[place] law, this organization might not be sharing sensitive test results. * Chlamydia and Gonorrhoea, Amplified (10/12/2020 4:58 PM EDT) Chlamydia Trachomatis, DNA Probe NEGATIVE (NEG) [facility] Comment: No Chlamydia Trachomatis RNA detected in this patient's sample ? (REFERENCE RANGE/NORMAL VALUE: NOT DETECTED) ? Note: This test uses medicine worker- mediated amplification method to detect rRNA from C. Trachomatis URINE GC AMP PROBE NEGATIVE (NEG) [facility] Comment: No Neisseria Gonorrhoeae RNA detected in this patient's sample ? (REFERENCE RANGE/NORMAL VALUE: NOT DETECTED) ? NOTE: This test uses medicine worker-mediated amplification method to detect rRNA from N.Gonorrhoeae. [...] without risk of sexual abuse. Consult the [facility] if needed. Contact phone number . Therapeutic failure or success cannot be determined with the Aptima Combo2 assay since nucleic acid may persist following appropriate antimicrobial therapy. The Centers for Disease Control and Prevention (CDC) recommends confirmatory retesting using culture or a different nucleic acid amplification test when positive results occur, if indicated. Testing performed or reported by [facility], a Service of [facility], [facility] [address] Salvatore Lee MD, Knit Goods Cutter Hand [facility]# [id number] Urine 10/12/2020 4:58 PM EDT 10/13/2020 1:29 AM EDT us Magdalena Krishnan MD LAB MICROBIOLOGY - GENERAL NINFA CARLTON Final Result [facility] from Last 3 Months or Most Recently Relevant to Health Maintenance
--- OUTSIDE RECORDS SUMMARY | 2024-03-18 10:18 | XMS_ITS | Encounter Summary ---
Author Organization [facility] Address [address] [place] [address] Phone Care Team Providers Care Business Operations Manager Name Role Phone Melita Bruce MD Primary Care Provider [phone] Encounter Details Date Type Department Care Team (Late st Contact Info) Description 10/02/2016 Documentation [facility] [place] [address] [place], [place] [id number] Family Medicine, Physician [address] [place], [place] [address] Social History Tobacco Use Types Packs/Day Years [...] on filedocumented in this encounter Care Teams Business Operations Manager Relationship Specialty Start Date End Date Melita Bruce MD [address] [place] [address] PCP - General 09/26/16 11/04/21 documented as of this encounter
[2024-03-18 10:40] LABS: Basophils Percent Auto 0.1 % (0-2); Hematocrit 43.7 % (37.0-47.0); Hemoglobin 14.8 g/dl (12.0-16.0); Imm Gran Abs Auto 0.03 X10*3/uL (0.00-0.03); Imm Gran Pct Auto 0.3 % (0.0-0.4); Lymphocytes Absolute Auto 1.7 X10*3/uL (1.2-4.9); Lymphocytes Percent Auto 18.5 % (20-40); Mean Corpuscular HGB Conc 33.9 g/dl (31.0-35.0); Mean Corpuscular Hemoglobin 29.7 pg (27.0-33.0); Mean Corpuscular Volume 87.6 fL (80.0-98.0); Mean Platelet Volume 11.8 fL (9.4-12.3); Monocytes Absolute Auto 0.9 X10*3/uL (0.1-1.2); Monocytes Percent Auto 10.3 % (2-11); Neutrophils Absolute Auto 6.4 x10*3/uL (2.0-8.3); Neutrophils Percent Auto 70.8 % (45-73); Platelet Count 173 X10*3/uL (160-400); Red Blood Count 4.99 X10*6/uL (4.20-5.50); Red Cell Distribution Width 12.6 % (11.0-16.0); White Blood Count 9.1 X10*3/uL (4.8-10.8)
[2024-03-18 10:53] LABS: Appearance Urine Cloudy; Color Urine Dark Yellow; Glucose Urine UA Negative (Negative); Leukocyte Esterase Urine Trace (Negative); Nitrite Urine Negative (Negative); Specific Gravity - Urine >= 1.030 (1.005-1.025); UMIC TRIGGER UACC YES; Urine Blood Moderate (2+) (Negative); Urine Ketones 40 mg/dL (Negative); Urine Protein 100 (2+) mg/dL (Neg-Trace)
[2024-03-18 11:00] LABS: Bacteria Urine None Seen (None Seen); RBC Urine >20 /HPF (0-2); WBC Urine 0-5 /HPF (0-5)
[2024-03-18 11:12] LABS: Alanine Aminotransferase 19 U/L (0-31); Albumin Level 4.4 g/dL (3.5-5.0); Alkaline Phosphatase 68 U/L (39-117); Anion Gap 14 (12-20); Aspartate Amino Transferase 28 U/L (5-31); Bilirubin Total 0.9 mg/dL (0.0-1.0); Blood Urea Nitrogen 11 mg/dL (9-16); Carbon Dioxide 27 mmol/L (22-29); Chloride 102 mmol/L (96-108); Cholesterol 121 mg/dL (<200); Estimated Glomerular Filt Rate > 60; Glucose Fasting 90 mg/dL (60-99); HDL Cholesterol 32 mg/dL (>40); LDL Cholesterol Calculated 73 mg/dL (<100); Potassium 3.2 mmol/L (3.3-5.1); Sodium 140 mmol/L (135-145); Total Protein 8.5 g/dL (6.5-8.0); Triglycerides 81 mg/dL (<150)
[2024-03-18 11:32] LABS: TSH reflex Free T4 0.42 uIU/mL (0.32-4.0); Vitamin D 25-OH Total 30.1 ng/mL (>30)
== END 2024-03-18 08:38 | disposition home or self-care (01) ==
LOC: HO.LAB 08:37
PROVIDERS: PCP Internal Medicine
DX: Z00.01 Encounter for general adult medical examination with abnormal findings (principal); R10.31 Right lower quadrant pain; J01.90 Acute sinusitis, unspecified; B96.89 Other specified bacterial agents as the cause of diseases classified elsewhere; R06.2 Wheezing
CPT/HCPCS: 36415; 80053; 80061; 81001; 82306; 84443; 85025; 96127; 99395

== ENCOUNTER 2024-07-08 13:44 | Outpatient (REF) | payer MEDICAID, SELFPAY ==
--- OUTSIDE RECORDS SUMMARY | 2024-07-08 13:48 | XMS_ITS | Encounter Summary ---
Author Organization [facility] Address [address] [place] [id number] Phone Care Team Providers Care Ear Flap Binder Name Role Phone Melita Bruce MD Primary Care Provider [phone] Encounter Details Date Type Department Care Team (Late st Contact Info) Description 06/28/2014 Documentation [facility] Family Medicine [address] [place] [address] Family Medicine, Physician [address], [place] [id number] Social History Tobacco Use Types Packs/Day Years [...] on filedocumented in this encounter Care Teams Ear Flap Binder Relationship Specialty Start Date End Date Melita Bruce MD [address] [place] [id number] PCP - General 09/26/16 11/04/21 documented as of this encounter
[2024-07-08 16:44] LABS: Bacterial Vaginosis PCR NEGATIVE (Negative); Candida Group PCR NOT DETECTED (Not Detect); Candida glab krusei PCR NOT DETECTED (Not Detect); Trichomonas vaginalis PCR NOT DETECTED (Not Detect)
== END 2024-07-08 13:45 | disposition home or self-care (01) ==
LOC: HO.HHCLNP 13:44
PROVIDERS: Visit Provider Nurse Practitioner
DX: R39.9 Unspecified symptoms and signs involving the genitourinary system (principal); N89.8 Other specified noninflammatory disorders of vagina
CPT/HCPCS: 81515; 87086